=== PATIENT | male | born 1965 | race Caucasian/White ===

== ENCOUNTER → 2017-06-23 | Outpatient (CLI) | payer BC ==
[~2017-06-23] MED LIST: ASPI81TA28 PO; DOXY50CA PO; GLUC15002 PO; MULT-351 PO; VALA1TAB31 PO; [UNRECOGNIZED DRUG - CODE] SQ
--- NOTE | 2017-06-23 15:08 | DIAGNOSTIC IMAGING REPORT ---
ABD/PELVIS IV AND ORAL CONT CLINICAL HISTORY: 52 years-old Male presenting with COLON MASS at the rectosigmoid on colonoscopy. TECHNIQUE: Multidetector CT of the abdomen and pelvis was performed after the administration of oral and intravenous contrast. IV contrast: 93 mL of Optiray 320. A dose lowering technique was used consistent with the principles of ALARA (as low as reasonably achievable). COMPARISON: None. CT DOSE (mGy.cm): The estimated cumulative dose is 684.54 mGycm. FINDINGS: Product Examiner topogram: Gaseous distention of colon. Lung bases: Minimal dependent changes likely atelectasis. Normal heart size. No pericardial or pleural effusion. Liver: Normal morphology. Multiple tiny hypodensities throughout the liver suggestive of hamartomas or hepatic cysts. Additionally an ill-defined indeterminate lesion measuring 11 mm is noted at the inferior right hepatic lobe (see series 3 image 188) no additional suspicious lesion is evident. Patent hepatic vasculature. Biliary: No intrahepatic or extrahepatic biliary ductal dilatation. Normal gallbladder. Pancreas: Normal. Spleen: Normal. Spinal noted. Adrenal glands: Normal. Kidneys and ureters: Subcentimeter hypodensity in the left kidney most likely simple cyst. No hydronephrosis. No nephrolithiasis. Bladder: Normal. Pelvic organs: Prostate and seminal vesicles normal. Postsurgical changes of vasectomy. Bowel: Linear hyperdensity in the mid to lower rectum may suggest a endoscopic clip. Circumferential wall thickening of the distal sigmoid and proximal rectum measuring approximately 5 cm in length. The distal most extent is approximately 13 cm from the anal verge. This spans the peritoneal reflection. Several adjacent suspicious subcentimeter lymph nodes noted. Prominent regional vasculature though no clear intravascular invasion is demonstrated within limitations of CT. Numerous additional endoscopic clips noted in the sigmoid colon. Mild gaseous distention secondary to recent colonoscopy. Oral contrast has transited to the transverse colon. The appendix is normal. No bowel obstruction. Peritoneal cavity: No free fluid or intraperitoneal gas. Lymph nodes: Numerous prominent and suspicious lymph nodes adjacent to the colonic wall thickening in the superior pelvis. No other sites of lymphadenopathy. Vasculature: The IVC is dilated suggesting hypovolemia. Aorta patent. Abdominal wall: Normal. Musculoskeletal: Normal. IMPRESSION: 1. Circumferential wall thickening of the distal sigmoid and proximal rectum measuring 5 cm in length and spanning the peritoneal reflection. This is highly suspicious for a primary colonic neoplasm. Numerous prominent local regional enlarged lymph nodes concerning for spread of disease. No other sites of lymphadenopathy. 2. Indeterminate 11 mm lesion in the inferior right hepatic lobe, which is suspicious for a site of metastatic disease. This is likely amenable to ultrasound-guided targeted liver biopsy. Electronically signed by: Marquis Garay M.D. 06/23/2017 3:07 PM Dictated Date/Time: 06/23/2017 2:59 PM
== END | disposition home or self-care (01) ==
LOC: C.CTS 13:10
PROVIDERS: ATTEND Internal Medicine Gastroenterology
DX: K63.89 Other specified diseases of intestine (principal); K76.9 Liver disease, unspecified

== ENCOUNTER 2017-06-30 08:49 | Day surgery (SDC) | payer BC ==
[2017-06-30] VITALS (7 sets, daily range): BP systolic 110–127; BP diastolic 63–78; PULSE 51–63; TEMP 36.3–37; O2SAT 98–99; Ht 188 cm; Wt 93.0 kg
[~2017-06-30] VITALS: Ht 188 cm; Wt 93.0 kg
[~2017-06-30 08:49] MED LIST changes: -GADOXETATE DISODIUM (NON-WT BASED PROCEDURE) IV PRN; -HYDR-5688 PO; -RIVA1TAB4 PO
[2017-06-30 09:36] LABS: PLATELET COUNT 168 K/uL (130-400)
[2017-06-30] MEDS ORDERED: RIVA1TAB4 PO (09:36)
[2017-06-30 09:38] LABS: PROTHROMBIN TIME (PATIENT) 10.8 SECONDS (9.0-12.0)
--- NOTE | 2017-06-30 13:31 | Discharge Instructions ---
Discharge Instructions Procedure Procedure Date: Jun 30, 2017. Reason for visit: Colon Ca, Abnormal Imagin Of Liver. Discharge Discharge Date: Jun 30, 2017. Discharge Diagnosis: same Instructions Activity Recommendations: No limitations Return to School/Work: no limitations Recommended Home Diet: Resume Previous Diet Provider Instructions: ACTIVITY RECOMMENDATIONS: * Rest today. * Resume regular activity in one day. MEDICATIONS: * May take Tylenol or Ibuprofen as needed for pain. DIET: * Resume previous diet. SPECIAL CARE INSTRUCTIONS: Call your doctor if: * Temperature above 101 degrees F. * Pain not relieved by pain medicine ordered. * Increased drainage or redness from incision. * Notify your doctor with any questions or concerns. Call your doctor or go to the nearest Emergency Department if you experience: * Increased chest pain or shortness of breath. FOLLOW UP VISIT: Follow-up with Referring Physician as scheduled. Allergies Coded Allergies: No Known Allergies (Unverified , 06/30/17) Frederic Yarbrough Recommendations: Call your doctor if: * Temperature above 101 degrees * Pain not relieved by pain medicine ordered * There is increased drainage or redness from any incision * You have any unanswered questions or concerns. Your Doctors Instructions noted above were prepared by provider Mustapha Sears. Patient Signature Section: Patient Instructions Signature Page Hernandez Wilson Patient (or Guardian) Signature/Date: I have read and understand the instructions given to me by my caregivers. Caregiver/RN/Doctor Signature/Date: The above-named patient and/or guardian has received patient instructions on this date. + Original Patient Signature Page (only) stays with chart. Please make copy for patient.
--- NOTE | 2017-06-30 13:43 | DIAGNOSTIC IMAGING REPORT ---
ULTRASOUND GUIDED FINE-NEEDLE ASPIRATION OF A RIGHT HEPATIC LOBE LESION HISTORY: Colorectal cancer. Hepatic lesion. PROCEDURE: Written informed consent was obtained. Preliminary imaging of the right hepatic lobe was performed to determine a safe needle injury site. 1% lidocaine was used for local anesthesia. A skin neck was made. A total of 2 passes using 22-gauge x 9 cm Raheem needle was made through the right hepatic lobe lesion under ultrasound guidance. The specimens were given to the on-site pathologist who determined adequate tissue for diagnosis. The patient tolerated the procedure well. No immediate complications. IMPRESSION: Status post ultrasound-guided fine aspiration of a right hepatic lobe lesion with specimens sent to pathology. Electronically signed by: Mustapha Sears M.D. 06/30/2017 1:41 PM Dictated Date/Time: 06/30/2017 1:38 PM
== END 2017-06-30 15:37 | disposition home or self-care (01) ==
LOC: C.ACU 08:49
PROVIDERS: ATTEND Internal Medicine Gastroenterology
DX: R93.2 Abnormal findings on diagnostic imaging of liver and biliary tract (principal); C18.9 Malignant neoplasm of colon, unspecified; C78.7 Secondary malignant neoplasm of liver and intrahepatic bile duct

== ENCOUNTER → 2017-06-30 | Outpatient (CLI) | payer BC ==
[~2017-06-30] MED LIST changes: +GADOXETATE DISODIUM (NON-WT BASED PROCEDURE) IV PRN; +HYDR-5688 PO; +RIVA1TAB4 PO
--- NOTE | 2017-06-30 13:28 | DIAGNOSTIC IMAGING REPORT ---
MRI OF THE ABDOMEN COMBO CLINICAL HISTORY: Colon cancer. Indeterminate liver lesion. COMPARISON STUDY: Abdominal CT dated 06/23/2017. TECHNIQUE: MRI of the abdomen is performed transverse T1 and T2-weighted sequences in the axial and coronal planes. Contrast enhanced sequences were acquired following the IV administration of 10 cc view of Eovist subtraction imaging and diffusion-weighted imaging were utilized. MRCP reformats were created and assessed.. FINDINGS: Lower chest: No pleural effusion is identified. The heart is normal in size. Liver: The liver is normal in size, contour, and signal intensity. No intrahepatic biliary ductal dilatation is seen. The hepatic veins and portal veins are patent. There is a 1.9 cm T2 slightly hyperintense, T1 hypointense lesion identified in hepatic segment V. This demonstrates small peripheral foci of nodular enhancement but does not completely fill in on the delayed series. This lesion does not retain Eovist and shows restricted diffusion. No additional concerning hepatic lesions are seen. There are numerous tiny biliary cystadenomas incidentally noted. Gallbladder: The gallbladder is normal in appearance. The common bile duct measures up to 6 mm. The pancreatic duct is normal as visualized. Spleen: Normal in size and signal intensity. Pancreas: Unremarkable. Adrenal glands: Unremarkable. Kidneys: The kidneys are normal in size and without hydronephrosis. The kidneys enhance and excrete symmetrically. A subcentimeter cyst is noted in the left kidney. Abdominal aorta: Normal in course and caliber. Bowel: Visualized portions of the small bowel and colon show no evidence of obstruction. Peritoneum: There is no abdominal ascites. Lymphadenopathy: None. Skeletal structures: Visualized skeletal structures times are normal marrow signal intensity. IMPRESSION: 1. There is a 1.9 cm lesion in the right lobe of the liver as above. This is pathologically indeterminant, and although the enhancement kinetics suggest this may represent a benign hemangioma this is not definitive and a metastatic lesion is not excluded given the history of colon cancer. A 2-3 month follow-up contrast-enhanced CT scan is recommended for reassessment. 2. No additional concerning hepatic lesion is seen. 3. 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 Electronically signed by: Eliecer Ordoñez M.D. 06/30/2017 1:26 PM Dictated Date/Time: 06/30/2017 12:26 PM
== END | disposition home or self-care (01) ==
LOC: C.MRI 11:12
PROVIDERS: ATTEND Colon & Rectal Surgery
DX: C18.9 Malignant neoplasm of colon, unspecified (principal); R93.2 Abnormal findings on diagnostic imaging of liver and biliary tract; K76.9 Liver disease, unspecified

== ENCOUNTER → 2017-07-01 | Outpatient (CLI) | payer BC ==
[~2017-07-01] MED LIST changes: -ASPI81TA28 PO; +CEPH500C PO; -DOXY50CA PO; +GABA-112 PO; +HYDR-5688 PO; -MULT-351 PO; +RIVA1TAB4 PO; +XRL10 PO; -[UNRECOGNIZED DRUG - CODE] SQ
--- NOTE | 2017-07-01 12:03 | DIAGNOSTIC IMAGING REPORT ---
PET/CT HISTORY: COLORECTAL CANCER TECHNIQUE: PET/CT was performed from the base of the skull through the pelvis following the intravenous administration of mCi of F18-FDG. Non-contrast CT imaging was performed over the same range without breath-hold for attenuation correction of PET images and anatomic correlation, but not for primary interpretation as it is not of standard diagnostic quality. CT DOSE: COMPARISON: Abdomen and pelvis CT 06/23/2017. FINDINGS: HEAD AND NECK: There is no FDG-avid disease or significant lymphadenopathy in the imaged portions of the head and the neck. CHEST: There is no FDG-avid disease in the chest. There is no axillary, mediastinal, or hilar lymphadenopathy. There is no pleural or pericardial effusion. There is no air-space disease or suspicious lung nodule. ABDOMEN/PELVIS: 1.5 cm hypodense lesion within segment 6 of the liver is again noted. This demonstrates [id number] FDG uptake with an SUV max of 4. There is also redemonstration of the circumflex frontal thickening within the distal sigmoid colon which measures a total length of approximate 5 cm. This is consistent with patient's colonic mass and demonstrates an SUV max of 10. There are 2 adjacent pericolonic soft tissue nodules consistent with conglomerate lymphadenopathy which measure 2.5 and 2.0 cm in size. These demonstrate an SUV max of 3. These are consistent with sites of metastatic disease MUSCULOSKELETAL: There is no FDG-avid or destructive bone lesion. IMPRESSION: 1. FDG avid distal sigmoid mass with adjacent FDG avid pericolonic lymphadenopathy as described above. 2. A 1.5 cm hypodense lesion within the liver demonstrating mild to moderate FDG uptake. The FDG uptake is nonspecific given the recent biopsy and could be related to postprocedural changes. However, metastatic disease remains the diagnosis of exclusion. Electronically signed by: Mustapha Sears M.D. 07/01/2017 12:02 PM Dictated Date/Time: 07/01/2017 11:49 AM
== END | disposition home or self-care (01) ==
LOC: C.PET 09:04
PROVIDERS: ATTEND Colon & Rectal Surgery
DX: C18.9 Malignant neoplasm of colon, unspecified (principal); K76.9 Liver disease, unspecified; Z98.890 Other specified postprocedural states

== ENCOUNTER → 2017-07-03 | Outpatient (CLI) | payer BC ==
--- NOTE | 2017-07-03 12:34 | DIAGNOSTIC IMAGING REPORT ---
TWO VIEW CHEST CLINICAL HISTORY: Colon cancer. Preoperative examination. FINDINGS: PA and lateral chest radiographs are correlated with PET/CT dated 07/01/2017. The cardiomediastinal silhouette is unremarkable. The lungs and pleural spaces are clear. There is no pneumothorax. The bony thorax appears intact. IMPRESSION: No active disease in the chest. Electronically signed by: Eliecer Ordoñez M.D. 07/03/2017 12:33 PM Dictated Date/Time: 07/03/2017 12:32 PM
== END | disposition home or self-care (01) ==
LOC: C.CPL 11:27
PROVIDERS: ATTEND Surgery
DX: Z01.811 Encounter for preprocedural respiratory examination (principal); C18.9 Malignant neoplasm of colon, unspecified

== ENCOUNTER 2017-07-07 06:44 | Day surgery (SDC) | payer BC, OTHER ==
[2017-07-03 16:08] VITALS: BMI 26.0
[~2017-07-07] VITALS: Ht 188 cm; Wt 93.6 kg
[~2017-07-07 06:44] MED LIST changes: -CEPH500C PO; -GABA-112 PO; -HYDR-5688 PO; +LACTATED RINGER'S 1000ML 1,000 ML IV SCH; -XRL10 PO
[2017-07-07 06:55] VITALS: BP 120/79; PULSE 66; TEMP 36.8; O2SAT 99; Ht 188 cm; Wt 93.6 kg
--- NOTE | 2017-07-07 06:56 | History & Physical Bridge Note ---
H&P Re-Evaluation Bridge Note: I have examined the patient, reviewed the History & Physical and in the interval since the performance of the History & Physical I have noted the following changes of clinical significance: No changes noted to be here later
[2017-07-07] MEDS ORDERED: HYDR-5688 PO (07:44)
--- NOTE | 2017-07-07 07:45 | Discharge Instructions ---
Discharge Instructions Date of Service Jul 07, 2017. Visit Reason for Visit: Colon Cancer Discharge Discharge Diagnosis / Problem: A-port Discharge Goals Goal(s): Therapeutic intervention Activity Recommendations Activity Limitations: as noted below Shower/Bathe: tomorrow Anesthesia . Post Anesthesia Instructions: If you have had General Anesthesia or IV Sedation: * Do not drive today. * Resume driving when surgeon permits. * Do not make important decisions or sign legal documents today. * Call surgeon for: 1. Temperature elevations greater than 101 degrees F. 2. Uncontrollable pain. 3. Excessive bleeding. 4. Persistent nausea and vomiting. 5. Medication intolerance (nausea, vomiting or rash). * For nausea and vomiting use only clear liquids such as: tea, soda, bouillon until nausea subsides, then gradually increase diet as tolerated. * If you have any concerns or questions, call your surgeon's office. If physician is unavailable and it is an emergency, call 911 or go to the nearest emergency room. . Instructions / Follow-Up Instructions / Follow-Up Dr. Westfall in 1-2 weeks as needed, call [phone] for any questions It is OK for port to be used Restart Xarelto on Diet Recommendations Recommended Home Diet: no limitations Pending Studies Studies pending at discharge: no Medical Emergencies . Who to Call and When: Medical Emergencies: If at any time you feel your situation is an emergency, please call 911 immediately. . Non-Emergent Contact Non-Emergency issues call your: Surgeon Call Non-Emergent contact if: you have a fever, temperature is above 101.5, your pain is not controlled, wound has increased redness, wound has increased pain . . "Provider Documentation" section prepared by Jonny Lombardi. .
[2017-07-07] MEDS ORDERED: LIDOCAINE HCL 2% 2 ML VIAL (20MG/ML) ONE (08:00)
[2017-07-07] MEDS ORDERED: ATROPINE SULFATE 0.1 MG/ML 5ML SYR IV PRN (08:00)
[2017-07-07] MEDS ORDERED: FENTANYL CITRATE INJ 50 MCG/1 ML 2 ML VIAL ONE (08:00)
[2017-07-07] MEDS ORDERED: PROPOFOL IV EMULSION 10 MG/ML 20 ML VIAL IV ONE (08:00)
[2017-07-07] MEDS ORDERED: MIDAZOLAM HCL 1 MG/ML 2ML VIAL ONE ×2 (08:00→08:39)
[2017-07-07] MEDS ORDERED: ONDANSETRON INJ 2 MG/ML 2 ML VIAL IV PRN ×2 (08:00→09:30)
[2017-07-07] MEDS ORDERED: FENTANYL CITRATE INJ 50 MCG/1 ML 2 ML VIAL IV PRN (08:00)
[2017-07-07] MEDS ORDERED: EpHEDrine SULFATE INJ 50 MG/ML AMP IV PRN (08:00)
[2017-07-07] MEDS ORDERED: LIDOCAINE HCL 1% 20 ML VIAL ONE (08:28)
[2017-07-07] MEDS ORDERED: BACITRACIN 50000 UNIT VIAL ONE (08:29)
[2017-07-07] MEDS ORDERED: ONDANSETRON INJ 2 MG/ML 2 ML VIAL ONE (09:04)
[2017-07-07] MEDS ORDERED: LACTATED RINGER'S 1000ML 1,000 ML IV SCH (09:19)
[2017-07-07] MEDS ORDERED: MoRPHine SULFATE 2 MG/ML CARP IV PRN (09:30)
[2017-07-07] MEDS ORDERED: HYDROCODONE/ACETAMIN 5/325MG TAB PO PRN (09:30)
--- NOTE | 2017-07-07 09:32 | [facility] Post Operative Brief Note ---
Immediate Operative Summary Operative Date Jul 07, 2017. Pre-Operative Diagnosis Need for IV therapy for chemotherapy Post-Operative Diagnosis Same Procedure(s) Performed Insertion of A-Port left subclavian Surgeon Dr Westfall Video Game Creator Surgeon(s) none Estimated Blood Loss 2ML Findings as preop Specimens none Anesthesia 1%xyl(8cc) and iv sedation Complication(s) None (OR summary dictated co nfirmation number [id number])
[2017-07-07 09:45] VITALS: BP 111/65; PULSE 55; TEMP 36.6; O2SAT 99
--- NOTE | 2017-07-07 09:46 | DIAGNOSTIC IMAGING REPORT ---
CHEST ONE VIEW PORTABLE CLINICAL HISTORY: Port placement. COMPARISON STUDY: PET/CT July 01, 2017 and chest radiograph July 03, 2017. FINDINGS: There has been interval placement of a left subclavian [id number]. Catheter tip projects over the cavoatrial junction. Catheter is intact and there is no pneumothorax. There is no evidence for pulmonary edema. No consolidation to suggest pneumonia is present. Cardiomediastinal silhouette is unremarkable. IMPRESSION: No pneumothorax following placement of a left subclavian [id number]. Electronically signed by: Adam Yuen M.D. 07/07/2017 9:45 AM Dictated Date/Time: 07/07/2017 9:39 AM
[2017-07-07 10:30] VITALS: BP 121/78; PULSE 54; TEMP 36.5; O2SAT 100
--- NOTE | 2017-07-07 10:42 | OPERATIVE REPORT ---
DATE OF OPERATION: 07/07/2017 SURGEON: Jose C Westfall MD. PREOPERATIVE DIAGNOSIS: Metastatic colon cancer. POSTOPERATIVE DIAGNOSIS: Same. 1 PROCEDURE: MRI compatible port through the left subclavian. SUMMARY: The patient was brought into the operating room theater. In supine position, a roll had been placed underneath his shoulders. The left chest and neck was prepped with Betadine scrubbing solution and properly draped. Systemic antibiotic was given. IV sedation was given. At this point, 1% Xylocaine without epinephrine, a total 8 mL first was introduced to anesthetize at the angle of the clavicle sufficient enough that when the patient was placed in the Trendelenburg position, we were able to access the subclavian vein. At this point, we placed the guidewire and fluoroscopically were in the superior vena cava of right atrial. At this point, we then left the wire intact there and created another pocket about an inch or so below this puncture site where an incision was made approximately an inch and a half long with preemptive local analgesia, cut through, went onto the subcutaneous tissue, we basically did note that there was a fat above the superficial body fascia that created a pocket for a reservoir, sufficient enough that could accommodate and easily palpate through the skin. The reservoir was then brought up onto the field and retracted in the pocket that was created and appeared easily palpable. At this point, we then dissected underneath the superior aspect of that incision to the point that we were able to find the guidewire and tunneled it to the open incision from the puncture site. There was very little bleeding and that the patient was on Xarelto and we had stopped about 2 days before. The patient was then placed in the Trendelenburg position. Fluoroscopically, we revisualized the guidewire, it was still in the superior vena cava. We then placed the introducer and a peel away sheath followed by the catheter that we positioned at the level of about 30 cm. We peeled away the sheath to place a 4 x 4 in that area and imaged the system where the catheter appeared to be in the right ventricle, almost inferior vena cava. At this point, we then pulled it back sufficient enough to cut the catheter, placed a black bolster and then inserted on the reservoir, secured it with a black bolster, we aspirated and flushed quite easily. We reimaged the system and appeared to be satisfactory in the right atrial area, almost to the point of the superior vena cava junction. We then incised in the subcutaneous pocket through 3 polar apices with 2-0 nylon. We aspirated freshly percutaneously and there was no difficulty. We then closed the wound in multiple layers using 2-0 and 3-0 Dexon and 4-0 Monocryl subcuticularly. Steri-Strips applied. Prior to closing, we had imaged the system again and the catheter appeared to be in good position. Estimated blood loss approximately 3 mL. The patient tolerated the procedure well and taken to recovery in good condition. I attest to the content of the Intraoperative Record and any orders documented therein. Any exception s are noted below.
--- NOTE | 2017-07-07 11:05 | Anesthesiology Progress Note ---
Anesthesia Post Op Note Date & Time Jul 07, 2017 at 11:05 Vital Signs Pain Intensity: 0 Vital Signs Past 12 Hours Date Time Temp Pulse Resp B/P (MAP) Pulse Ox O2 Delivery O2 Flow Rate FiO2 07/07/17 10:30 36.5 54 16 121/78 100 Room Air 07/07/17 09:45 36.6 55 18 111/65 99 Room Air 07/07/17 09:40 36.4 51 14 109/68 98 Room Air 07/07/17 09:30 52 16 107/67 97 Room Air 07/07/17 09:20 36.8 52 16 104/70 99 Oxymask 10 07/07/17 06:55 36.8 66 18 120/79 (93) 99 Room Air Notes Mental Status: alert / awake / arousable, participated in evaluation Pt Amnestic to Procedure: Yes Nausea / Vomiting: adequately controlled Pain: adequately controlled Airway Patency, RR, SpO2: stable & adequate BP & HR: stable & adequate Hydration State: stable & adequate Anesthetic Complications: no major complications apparent
--- NOTE | 2017-07-08 08:06 | OPERATIVE REPORT ---
DATE OF OPERATION: 07/07/2017 PREOPERATIVE DIAGNOSIS: Metastatic colon cancer. POSTOPERATIVE DIAGNOSIS: Same. PROCEDURE: MRI compatible port in the left subclavian using fluoroscopy. SUMMARY: We utilized the fluoroscopic unit to position the MRI compatible port through the left subclavian on this gentleman. I attest to the content of the Intraoperative Record and any orders documented therein. Any exception s are noted below.
[2017-12-23] MEDS ORDERED: GABA-112 PO (10:23)
[2017-12-23] MEDS ORDERED: XRL10 PO (10:23)
[2018-01-22] MEDS ORDERED: CEPH500C PO (11:27)
== END 2017-07-07 10:45 | disposition home or self-care (01) ==
LOC: C.ACU 06:44
PROVIDERS: ATTEND Surgery
DX: C18.9 Malignant neoplasm of colon, unspecified (principal); C78.7 Secondary malignant neoplasm of liver and intrahepatic bile duct; Z86.718 Personal history of other venous thrombosis and embolism; Z79.82 Long term (current) use of aspirin; Z98.52 Vasectomy status; Z86.711 Personal history of pulmonary embolism; Z79.01 Long term (current) use of anticoagulants

== ENCOUNTER 2019-08-18 02:41 | Inpatient (IN) ==
[2019-08-18] MEDS ORDERED: ONDANSETRON INJ 2 MG/ML 2 ML VIAL IV STA ×2 (03:14→08:03)
[2019-08-18] MEDS ORDERED: SODIUM CHLORIDE 0.9% 1000ML 1,000 ML IV SCH (03:15)
[2019-08-18] MEDS: fentaNYL citrate 100 MCG/2 ML VIAL IV PRN ×4 (03:32→07:58)
[2019-08-18 03:46] LABS: Basophils # (auto) 0.01 K/uL (0-0.2); Basophils % (auto) 0.1 %; Immature Granulocytes # (auto) 0.02 K/uL (0.00-0.02); Immature Granulocytes % (auto) 0.2 %; Lymphocytes % (auto) 3.2 %; Mean Corpuscular Hemoglobin 26.9 pg (25-34); Mean Corpuscular Hgb Conc 34.2 g/dL (32-36); Mean Corpuscular Volume 78.7 fL (80-100); Mean Platelet Volume 9.9 fL (7.4-10.4); Monocytes # (auto) 0.62 K/uL (0.11-0.59); Neutrophils # (auto) 11.37 K/uL (1.4-6.5); Neutrophils % (auto) 91.5 %; Platelet Count 175 K/uL (130-400); RDW Standard Deviation 40.3 fL (36.4-46.3); Red Blood Count 4.83 M/uL (4.7-6.1); White Blood Count 12.42 K/uL (4.8-10.8)
[2019-08-18 03:52] LABS: Appearance Urine Turbid (Clear); Bilirubin Urine Negative (Negative); Blood Urine Negative (Negative); Color Urine Red; Glucose Urine UA Negative (Negative); Ketones Urine Trace (Negative); Leukocyte Esterase Urine Negative (Negative); Nitrite Urine Negative (Negative); Protein Urine Trace (Negative); Specific Gravity Urine >= 1.030 (1.000-1.030); Urobilinogen Urine Negative (Negative); pH Urine 5.5 (4.5-7.5)
[2019-08-18] MEDS ORDERED: HYDROmorphone INJ 1 MG/ML SYRINGE IV STA (03:57)
[2019-08-18 04:01] LABS: INR 1.2 (0.9-1.1); Partial Thromboplastin Ratio 0.8; Partial Thromboplastin Time 22.5 Seconds (21.0-31.0); Prothrombin Time 11.7 Seconds (9.0-12.0)
--- NOTE | 2019-08-18 04:02 | Emergency Department Note ---
History of Present Illness General Chief complaint: Abdominal Pain Stated complaint: ABD PAIN,BACK PAIN,NAUSEA,VOMITING History of Present Illness Maximum Pain Intensity: 8 This 54-year-old presents to the ER complaining of nausea vomiting severe epigastric pain that radiates to his back who had an ERCP stent placed today at [facility] Location: Abdomen Quality: Severe Severity: Severe Duration: Tonight Timing: Started after he ate [employer] and a sleeve of chocolate chip cookies Context: Patient was concerned and came in Modifying factors: better with nothing; worse with activity Patient called his GI doctor at [facility] and was advised to go the ER. He has been off his Xarelto for the procedure. He has a history of colon cancer with mets to the liver. He has had 2 liver resections and a colon resection. He states he currently does not have active cancer. He is not on chemo or radiation. He has a drain placed for fluid in his right upper quadrant. No inc rease in the drainage. Patient denies fevers, cough, diarrhea, leg pain or swelling. Home Medications Home Medications Medication Instructions Recorded Confirmed Type rivaroxaban [Xarelto] 10 mg DAILY 08/18/19 08/18/19 History Allergies Allergy/AdvReac Type Severity Reaction Status Date / Time No Known Allergies Allergy Verified 08/18/19 03:58 Past Med/Surg History Medical History (Updated 08/18/19 @ 08:53 by Lauar Thurston MD) Colon cancer DVT (deep venous thrombosis) (Acute 12/29/13) PE (pulmonary embolism) (Acute) Superficial thrombophlebitis of left leg (Resolved) Surgical History H/O arthroscopic knee surgery (Resolved) Family History (Updated 08/18/19 @ 13:03 by Laura Thurston MD) Father Coronary heart disease Social History Preferred Language: Kyrgyz Communication Ability: Effective Changer Fixer Required: No Beliefs That Will Affect Care: None Current Living Situation: Spouse Other Information That Helps Us Care for You: No Feels Safe at Home: Yes Safety Concerns: Feels Safe At This Time Smoking Status: Never smoker Do You Dip or Chew Tobacco: No ; Second Hand Exposure: No ; Tobacco Cessation Education Requested by Patient: No Hx Alcohol Use: No Hx Substance Use: No Review of Systems A total of 10 systems reviewed and were otherwise negative Physical Exam Vital Signs Vital Signs - 24 hr 08/18/19 04:31 08/18/19 05:00 08/18/19 06:00 Pulse Rate 66 61 82 Pulse Rate from SpO2 Sensor 64 61 77 Respiratory Rate 18 23 25 H Blood Pressure 132/77 137/72 122/69 Blood Pressure Mean 103 95 91 Pulse Oximetry 97 98 98 Oxygen Delivery Method Room Air Room Air Room Air 08/18/19 07:00 08/18/19 08:00 Pulse Rate 81 74 Pulse Rate from SpO2 Sensor 82 75 Respiratory Rate 23 20 Blood Pressure 134/80 134/73 Blood Pressure Mean 96 86 Pulse Oximetry 97 96 Oxygen Delivery Method Room Air Room Air VITALS: Vitals are noted on the nurse's note and reviewed by myself. Vital signs stable. GENERAL: Pleasant male who appears in pain, in moderate acute distress, nondiaphoretic, well-developed well-nourished. SKIN: Capillary reflex less than 2 seconds. HEENT: Normocephalic. PERRLA. EOMI. Nares patent. Mucous membranes moist. Neck is supple without nuchal rigidity. HEART: Regular rate and rhythm LUNGS: Clear to auscultation bilaterally without wheezes, rales or rhonchi. No retractions or accessory muscle use. ABDOMEN: Positive bowel sounds x 4. Normal tympanic percussion. Soft, diffusely tender to palpation with increased pain in the epigastric region, without masses or organomegaly. Tucker sign negative. No guarding or rebound tenderness. No CVA tenderness MUSCULOSKELETAL: No gross musculoskeletal defects. NEURO: Patient was alert and oriented to person place and time. No focal neurological deficits. Course Administered Medications Hydromorphone HCl (Dilaudid) 0.5 mg IV Q2H PRN PRN Reason: Pain Stop: 09/01/19 09:51 Last Admin: 08/19/19 03:30 Dose: 0.5 mg Documented by: [id number] Admin: 08/18/19 23:48 Dose: 0.5 mg Documented by: [id number] Admin: 08/18/19 21:07 Dose: 0.5 mg Documented by: [id number] Admin: 08/18/19 18:09 Dose: 0.5 mg Documented by: [id number] Admin: 08/18/19 14:59 Dose: 0.5 mg Documented by: [id number] Admin: 08/18/19 11:56 Dose: 0.5 mg Documented by: [id number] Lactated Ringer's (Lr) 1,000 mls @ 100 mls/hr IV .Q10H MIESHA Stop: 09/17/19 07:44 Last Admin: 08/18/19 19:35 Dose: 100 mls/hr Documented by: [id number] Infusion: 08/18/19 17:57 Dose: 100 mls/hr Documented by: [id number] Admin: 08/18/19 07:57 Dose: 100 mls/hr Documented by: [id number] Famotidine 20 mg/ Syringe 5 mls @ 2.5 mls/min IV BID MIESHA Stop: 09/17/19 10:29 Last Admin: 08/18/19 21:08 Dose: 2.5 mls/min Documented by: [id number] Admin: 08/18/19 10:29 Dose: 2.5 mls/min Documented by: [id number] Piperacillin Sod/Tazobactam (Sod 3.375 gm/ Dextrose) 115 mls @ 28.75 mls/hr IV Q8H MIESHA; Protocol Stop: 08/28/19 11:59 Last Infusion: 08/18/19 23:48 Dose: 0 mls/hr Documented by: [id number] Admin: 08/18/19 19:38 Dose: 28.8 mls/hr Documented by: [id number] Infusion: 08/18/19 16:00 Dose: 0 mls/hr Documented by: [id number] Admin: 08/18/19 11:56 Dose: 28.8 mls/hr Documented by: [id number] Ondansetron HCl (Zofran) 4 mg IV Q6H PRN PRN Reason: Nausea Stop: 09/17/19 09:51 Last Admin: 08/18/19 18:14 Dose: 4 mg Documented by: [id number] Admin: 08/18/19 11:56 Dose: 4 mg Documented by: [id number] Rivaroxaban (Xarelto) 10 mg PO DAILY [facility] Stop: 09/17/19 08:59 Last Admin: 08/18/19 10:29 Dose: 10 mg Documented by: [id number] Discontinued Medications Fentanyl Citrate (Fentanyl Citrate) 100 mcg IV Q1H PRN PRN Reason: Pain Stop: 09/01/19 03:13 Last Admin: 08/18/19 07:58 Dose: 100 mcg Documented by: [id number] Admin: 08/18/19 06:41 Dose: 100 mcg Documented by: [id number] Admin: 08/18/19 05:24 Dose: 100 mcg Documented by: [id number] Admin: 08/18/19 03:32 Dose: 100 mcg Documented by: [id number] Hydromorphone HCl (Dilaudid) 1 mg IV NOW STA Stop: 08/18/19 03:58 Last Admin: 08/18/19 04:05 Dose: 1 mg Documented by: [id number] Sodium Chloride (Nss 1000ml) 1,000 mls @ 999 mls/hr IV .Q1H1M [facility] Stop: 08/18/19 04:15 Last Infusion: 08/18/19 04:33 Dose: 0 mls/hr Documented by: [id number] Admin: 08/18/19 03:32 Dose: 999 mls/hr Documented by: [id number] Piperacillin Sod/Tazobactam Sod (Zosyn) 4.5 gm in 120 mls @ 240 mls/hr IV NOW ONE Stop: 08/18/19 05:20 Last Infusion: 08/18/19 05:52 Dose: 0 mls/hr Documented by: [id number] Admin: 08/18/19 05:21 Dose: 240 mls/hr Documented by: [id number] Lactated Ringer's (Lr) 1,000 mls @ 250 mls/hr IV .Q4H [facility] Stop: 09/17/19 06:29 Last Infusion: 08/18/19 10:14 Dose: 0 mls/hr Documented by: [id number] Infusion: 08/18/19 07:57 Dose: 0 mls/hr Documented by: [id number] Admin: 08/18/19 06:41 Dose: 250 mls/hr Documented by: [id number] Ioversol (Optiray 320 100ml) 100 ml IV ONCE PRN PRN Reason: Interaction Checking Stop: 08/22/19 04:30 Last Admin: 08/18/19 04:31 Dose: 93 ml Documented by: [id number] Ondansetron HCl (Zofran) 4 mg IV NOW STA Stop: 08/18/19 03:15 Last Admin: 08/18/19 03:32 Dose: 4 mg Documented by: [id number] Ondansetron HCl (Zofran) 4 mg IV NOW STA Stop: 08/18/19 08:04 Last Admin: 08/18/19 08:25 Dose: Not Given Documented by: [id number] Ondansetron HCl (Zofran) Confirm Administered Dose 4 mg .ROUTE .STK-MED ONE Stop: 08/18/19 08:07 Last Admin: 08/18/19 08:12 Dose: 4 mg Documented by: [id number] Medical Decision Making Medical Records Attestation: I reviewed the patient's medical records. Home Medications Current Medication List: was personally reviewed by me Laboratory Data Attestation: I reviewed the patient's lab results. Result diagrams: 08/18/19 03:32 08/18/19 03:32 Lab Results 08/18/19 08/18/19 08/18/19 Range/Units 03:32 03:32 03:32 WBC 12.42 H (4.8-10.8) K/uL RBC 4.83 (4.7-6.1) M/uL Hgb 13.0 L (14.0-18.0) g/dL Hct 38.0 L (42-52) % MCV 78.7 L (80-100) fL MCH 26.9 (25-34) pg MCHC 34.2 (32-36) g/dL RDW Std Deviation 40.3 (36.4-46.3) fL RDW Coeff of Cat 14.0 (11.5-14.5) % Plt Count 175 (130-400) K/uL MPV 9.9 (7.4-10.4) fL Immature Gran % (Auto) 0.2 % Neut % (Auto) 91.5 % Lymph % (Auto) 3.2 % Lawrence % (Auto) 5.0 % Eos % (Auto) 0.0 % Baso % (Auto) 0.1 % Immature Gran # (Auto) 0.02 (0.00-0.02) K/uL Neut # (Auto) 11.37 H (1.4-6.5) K/uL Lymph # (Auto) 0.40 L (1.2-3.4) K/uL Lawrence # (Auto) 0.62 H (0.11-0.59) K/uL Eos # (Auto) 0.00 (0-0.5) K/uL Baso # (Auto) 0.01 (0-0.2) K/uL PT (9.0-12.0) Seconds INR (0.9-1.1) APTT (21.0-31.0) Seconds PTT Ratio Sodium 136 (136-145) mmol/L Potassium 3.9 (3.5-5.1) mmol/L Chloride 101 (98-107) mmol/L Carbon Dioxide 27 (21-32) mmol/L Anion Gap 8.0 (3-11) BUN 16 (7-18) mg/dl Creatinine 0.83 (0.6-1.4) mg/dl Est Cr Clr Drug Dosing 119.7 ml/min Est GFR ( Amer) 116.4 Est GFR (Non-Af Amer) 100.5 BUN/Creatinine Ratio 19.5 (10-20) Glucose 162 H (70-99) mg/dl Lactate 2.0 (0.4-2.0) mmol/L Calcium 9.1 (8.5-10.1) mg/dl Total Bilirubin 1.5 H (0.2-1) mg/dl AST 34 (15-37) U/L ALT 28 (12-78) U/L Alkaline Phosphatase 124 H (45-117) U/L Troponin I < 0.015 (0-0.045) ng/ml Total Protein 7.7 (6.4-8.2) gm/dl Albumin 3.5 (3.4-5.0) gm/dl Globulin 4.2 H (2.5-4.0) gm/dl Albumin/Globulin Ratio 0.8 L (0.9-2) Lipase 23443 H (73-393) U/L Urine Color Urine Appearance (Clear) Urine pH (4.5-7.5) Ur Specific Grace (1.000-1.030) Urine Protein (Negative) Urine Glucose (UA) (Negative) Urine Ketones (Negative) Urine Blood (Negative) Urine Nitrite (Negative) Urine Bilirubin (Negative) Urine Urobilinogen (Negative) Ur Leukocyte Esterase (Negative) Urine RBC (0-4) /hpf Urine WBC (0-5) /hpf Ur Epithelial Cells (0-5) /lpf Urine Bacteria (Negative) Granular Casts (0) /lpf 02/13/20 02/13/20 Range/Units 03:32 03:32 WBC (4.8-10.8) K/uL RBC (4.7-6.1) M/uL Hgb (14.0-18.0) g/dL Hct (42-52) % MCV (80-100) fL MCH (25-34) pg MCHC (32-36) g/dL RDW Std Deviation (36.4-46.3) fL RDW Coeff of Cat (11.5-14.5) % Plt Count (130-400) K/uL MPV (7.4-10.4) fL Immature Gran % (Auto) % Neut % (Auto) % Lymph % (Auto) % Lawrence % (Auto) % Eos % (Auto) % Baso % (Auto) % Immature Gran # (Auto) (0.00-0.02) K/uL Neut # (Auto) (1.4-6.5) K/uL Lymph # (Auto) (1.2-3.4) K/uL Lawrence # (Auto) (0.11-0.59) K/uL Eos # (Auto) (0-0.5) K/uL Baso # (Auto) (0-0.2) K/uL PT 11.7 (9.0-12.0) Seconds INR 1.2 H (0.9-1.1) APTT 22.5 (21.0-31.0) Seconds PTT Ratio 0.8 Sodium (136-145) mmol/L Potassium (3.5-5.1) mmol/L Chloride (98-107) mmol/L Carbon Dioxide (21-32) mmol/L Anion Gap (3-11) BUN (7-18) mg/dl Creatinine (0.6-1.4) mg/dl Est Cr Clr Drug Dosing ml/min Est GFR ( Amer) Est GFR (Non-Af Amer) BUN/Creatinine Ratio (10-20) Glucose (70-99) mg/dl Lactate (0.4-2.0) mmol/L Calcium (8.5-10.1) mg/dl Total Bilirubin (0.2-1) mg/dl AST (15-37) U/L ALT (12-78) U/L Alkaline Phosphatase (45-117) U/L Troponin I (0-0.045) ng/ml Total Protein (6.4-8.2) gm/dl Albumin (3.4-5.0) gm/dl Globulin (2.5-4.0) gm/dl Albumin/Globulin Ratio (0.9-2) Lipase (73-393) U/L Urine Color Red Urine Appearance Turbid A (Clear) Urine pH 5.5 (4.5-7.5) Ur Specific Grace >= 1.030 (1.000-1.030) Urine Protein Trace H (Negative) Urine Glucose (UA) Negative (Negative) Urine Ketones Trace H (Negative) Urine Blood Negative (Negative) Urine Nitrite Negative (Negative) Urine Bilirubin Negative (Negative) Urine Urobilinogen Negative (Negative) Ur Leukocyte Esterase Negative (Negative) Urine RBC 5-10 H (0-4) /hpf Urine WBC >30 H (0-5) /hpf Ur Epithelial Cells 10-20 H (0-5) /lpf Urine Bacteria 4+ H (Negative) Granular Casts 1-5 H (0) /lpf Imaging Data Attestation: I personally reviewed and interpreted this imaging study as follows: MDM Narrative Prior records/ancillary studies reviewed. Triage Nursing notes reviewed. Additional history obtained from family. The patient's history was concerning for abdominal pain. Differential diagnosis: Etiologies such as appendicitis, diverticulitis, PUD, biliary pathology, UTI, pancreatitis, obstruction, mesenteric ischemia, aortic pathology, infections, inflammatory bowel disease, renal colic, as well as others were entertained. Physical examination findings: As above. ER treatment provided: An order was placed for continuous cardiac monitoring. The monitor shows a rate of 60-100 with a normal sinus rhythm. Fentanyl, Zofran, IV fluids, Dilaudid On reassessment the patient felt better. Diagnostics interpreted by me: ECG: Ordered for epigastric pain EKG: Normal sinus, incomplete right bundle branch block, no acute ST-T wave changes, rate of 60. Impression incomplete right bundle branch block interpreted by myself I think arrhythmia is unlikely. EKG shows normal sinus rhythm with no interval abnormalities such as QT prolongation or WPW. There are no findings to suggest Brugada syndrome. Cardiac monitoring in the emergency department reveals no tachycardic or bradycardic dysrhythmia. Hypertrophic cardiomyopathy was considered but there are no clear historical elements pointing toward this. EKG is not suggestive. The QRS voltage is not extremely large and there are no sug gestive Q waves. The labs revealed leukocytosis Elevated lipase, urine concerning for infection and sent for culture Imaging studies: CT ABDOMEN & PELVIS With Contrast: Status post right hepatectomy, placement of a right upper abdominal drain near the resection margin, and CBD stent placement. Small amount of fluid at the resection margin could represent postoperative seroma or biloma. Small amount of free fluid in the abdomen and pelvis. No abscess. Heterogeneous enhancement of the pancreas with surrounding fluid likely represents pancreatitis. No pseudocyst or abscess. Status post distal colon resection. No bowel wall thickening or obstruction. Normal appendix. Linear opacity in the left lower lobe probably represents atelectasis. Radiologist: Chuck Rosas MD Consultation: A consultation was placed with the GI specialist at [facility], with no answer. The patient is requesting to stay here. I did danisha JOYCE herer and spoke to Dr. Garcia and states that there is just simply post procedure pancreatitis this can be managed here but if there is anything else the patient will be need to be transferred to tertiary facility. He recommends hydration of LR 250cc an hour with a urine output of point 0.5 mL/kg/h. I spoke to medicine, Dr. Caballero and will evaluate the patient. I informed that the patient is requesting to stay at this facility. I did speak to GI. The case was discussed and diagnostics were reviewed. The patient was evaluated in the ER for further treatment. Exam and history seem consistent with pancreatitis with UTI who just had a ERCP stent placed at [facility] yesterday afternoon. Patient was started on antibiotics. Patient is requesting to stay in this facility. I did danisha [facility] several times with no response. I spoke to GI here and states that they can evaluate the patient on consult. Medicine was consulted and will evaluate the patient. By the evaluation outlined above emergent etiologies such as appendicitis, diverticulitis, PUD, obstruction, mesenteric ischemia, aortic pathology, inflammatory bowel disease, renal colic, as well as others were deemed relatively unlikely. The pt informed about the findings as listed above. All questions were answered and pleased with the treatment. Case reviewed with my attending The chart was completed utilizing [employer] voice recognition software. Grammatical errors, random word insertions, pronoun errors, and incomplete sentences are an occassional consequence of this system due to software limitations, ambient noise, and hardware issues. Any formal questions or concerns about the content, text, or information contained within the body of this dictation should be directly addressed to the physician senior executive assistant for clarification. Impression & Plan Pancreatitis, Acute UTI Discharge Plan Visit Data *Final* Discharge Date/Time: 08/18/19 09:22 Chief Complaint: Abdominal Pain Stated Complaint: ABD PAIN,BACK PAIN,NAUSEA,VOMITING ED Provider: Ammy Mcgraw ED Midlevel Provider: Constance Curry Discharge Problem: Pancreatitis, Acute UTI Patient Disposition: Admitted As Inpatient Condition: Fair Discharge Instructions Interventions: ED Discharge Assessment Last Done: 08/18/19 09:22 Discharge Problem: Pancreatitis Qualifiers: Chronicity: acute Pancreatitis type: unspecified pancreatitis type Acute pancreatitis complication: unspecified Qualified Code(s): K85.90 - Acute pancreatitis without necrosis or infection, unspecified
[2019-08-18 04:04] LABS: Alanine Aminotransferase 28 U/L (12-78); Albumin Level 3.5 gm/dl (3.4-5.0); Aspartate Aminotransferase 34 U/L (15-37); BUN Creatinine Ratio 19.5 (10-20); Blood Urea Nitrogen 16 mg/dl (7-18); Calcium 9.1 mg/dl (8.5-10.1); Carbon Dioxide 27 mmol/L (21-32); Chloride 101 mmol/L (98-107); Creatinine Clr Calc Pharmacy 119.7 ml/min; Est GFR (African American) 116.4; Est GFR (Non-African American) 100.5; Glucose 162 mg/dl (70-99); Potassium 3.9 mmol/L (3.5-5.1); Sodium 136 mmol/L (136-145)
[2019-08-18 04:09] LABS: Albumin Globulin Ratio 0.8 (0.9-2); Alkaline Phosphatase 124 U/L (45-117); Bilirubin,Total 1.5 mg/dl (0.2-1); Globulin 4.2 gm/dl (2.5-4.0); Lipase 13210 U/L (73-393); Total Protein 7.7 gm/dl (6.4-8.2); Troponin I < 0.015 ng/ml (0-0.045)
[2019-08-18 04:19] LABS: Bacteria Urine 4+ (Negative); WBC Urine >30 /hpf (0-5)
[2019-08-18] MEDS ORDERED: IOVERSOL 100ml IV PRN (04:31)
[2019-08-18] MEDS ORDERED: PIPERACILLIN/TAZOBACTAM 4.5 GM/120 ML BAG IV ONE (04:51)
[2019-08-18] MEDS ORDERED: PIPERACILL/TAZOBAC CONSULT ACTIVE PRN (04:51)
[2019-08-18] MEDS ORDERED: LACTATED RINGER'S 1,000 ML IV SCH (06:30)
--- NOTE | 2019-08-18 07:54 | Emergency Department Note ---
ED Visit Note This patient's case was signed out to me by Chantelle Garzon PA-C at the end her shift. We were awaiting admission by the hospitalist for pancreatitis. The patient had a recent ERCP at [facility] and therefore Chantelle had attempted to get in touch with surgery. Before being admitted the surgeon called from [facility] and the case was discussed with him. He recommended that the patient have lactated Ringer's 100 mL's per hour. The order was changed as requested. The patient was admitted by the hospitalist. . : Pancreatitis Qualifiers: Chronicity: acute Pancreatitis type: unspecified pancreatitis type Acute pancreatitis complication: unspecified Qualified Code(s): K85.90 - Acute pancreatitis without necrosis or infection, unspecified
[2019-08-18] MEDS: LACTATED RINGER'S 1,000 ML IV SCH ×2 (07:57→19:35)
--- NOTE | 2019-08-18 07:57 | CT Scan Report ---
ABDOMEN AND PELVIS CT WITH IV CONTRAST CT DOSE: 472.08 mGy.cm HISTORY: Acute generalized abdominal pain status post ERCP history of colon cancer with metastatic di sease. Prior sigmoidectomy with colocolonic anastomosis. severe mid abd pain, ERCP stent placed today . TECHNIQUE: Multiaxial CT images of the abdomen and pelvis were performed following the IV administrat ion of 93 cc of Optiray 320, A dose lowering technique was utilized adhering to the principles of AL TALA. COMPARISON STUDY: CT abdomen from outside institution 08/04/2019, CT abdomen and pelvis 04/20/2019 FINDINGS: Mild bibasilar atelectasis, left greater than right. Trace right pleural effusion. No large volume pn eumatosis or pneumoperitoneum. Trace air is noted adjacent to the right partial hepatectomy site hilario cent to surgical suture material and drainage catheter. Mildly complex free fluid adjacent to the ely gical catheter has decreased from the 08/04/2019 exam. There is trace abdominal pelvic ascites with fl uid appearing simple. Splenomegaly, 15.2 cm. Heterogeneous appearance of the posterior right hepatic lobe adjacent to the resection margin. No new hepatic mass lesions identified. Hepatic and portal vei ns appear unremarkable. Mild bilateral adrenal gland thickening. Gallbladder appears surgically absen t. A common bile duct stent has been placed with distal tip terminating in the duodenum. No significa nt biliary ductal dilation identified. Interstitial and peripancreatic edema with surrounding peripan creatic free fluid suggest acute pancreatitis. There is homogeneous enhancement of the pancreas witho ut evidence of necrosis or acute peripancreatic fluid collection. No pancreatic ductal dilation, obst ruction lesion or mass identified. Kidneys are unremarkable. 6 mm hypodensity of the interpolar left kidney is too small to characterize however suggests probable cyst. Partial distention of the bladder with wall thickening. Prostamegaly . Multiple phleboliths of the pelvis. Aorta and IVC are unremarkable. There is no new adenopathy. Fluid within the distal esophagus. Fluid-filled stomach. Scattered small bowel air-fluid levels witho ut transition point identified to suggest obstruction. A few stool-filled loops of small bowel are al so noted within the lower abdomen and pelvis. Prior sigmoidectomy with colocolonic anastomosis. Mild wall thickening of the transverse colon is likely secondary to partial distention. Mild fecal retenti on. Retained enteric contrast is noted within a loop of distal ileum. Visualized appendix appears non inflamed. The mild generalized body wall edema. Bones appear grossly intact. IMPRESSION: 1. Findings compatible with moderate acute pancreatitis. No evidence of pancreatic necrosis or acute peripancreatic fluid collection. 2. Multiple small bowel air-fluid levels with a few stool-filled loops of small bowel are noted witho ut transition point. Findings are suggestive of ileus with low-grade partial obstruction also in the differential. 3. Postoperative changes of prior right hepatectomy. Pigtail drainage catheter adjacent to the resect ion site is redemonstrated with decreased amount of adjacent fluid. 4. Trace abdominal pelvic ascites with trace right pleural effusion. 5. Splenomegaly. 6. Prior sigmoidectomy with patent colocolonic anastomosis. 7. Additional findings as above. ACT 112: Negative or not required by law. The above report was generated using voice recognition software. It may contain grammatical, syntax o r spelling errors. Electronically signed by: Santiago Daniels M.D. 08/18/2019 7:55 AM
[2019-08-18] MEDS ORDERED: ONDANSETRON INJ 2 MG/ML 2 ML VIAL ONE (08:06)
--- NOTE | 2019-08-18 08:53 | History & Physical Report ---
Date of Service August 18, 2019 Assessment & Plan (1) Pancreatitis: 56 y/o M here with post ERCP pancreatitis Acute post ERCP pancreatitis - Elevated lipase >10k and CT findings positive - NPO, IVF, IV pepcid - IV dilaudid for pain control - recheck lipase in am - GI consult Colon cancer with h/o mets - Pigtail for fluid collection sec to ? leak - recent liver met resection followed by biliary leak - now s/p stent placement. Abnormal UA - started on zosyn. - follow urine culture Hx of PE - continue xarelto 10mgs (2) Abnormal urinalysis: (3) History of pulmonary embolism: (4) Colon cancer: History of Present Illness Primary Care Provider: Berhane Kuo 54 y/o M presented to ED with intractable severe epigastric pain while he was returning back from [facility] after getting ERCP and stent placed for biliary leak. He described the pain to be sharp, radiating to his back. In the ED he was evaluated and noted to have elevated lipase and CT findings suggestive of pancreatitis. He required multiple doses of fentanyl in the ER to help relieve the pain. He also became nausea and received a dose of zofran. At the time of my visit he reports his pain to be better but still severe. Patient has h/o colon cancer which was noted on his routine screening colonoscopy at recto-sigmoid junction in jun 2017 which was resection along with the small liver metastasis. He underwent chemo with Dr. Yun and the surgery was done in [facility]. During surveillance screening he was noted to have another liver metastases and had another resection on Jun 14 2019. Mid July 2019 he had shortness of breath and the work up showed fluid collection due to bile leak. A pigtail catheter was placed. Last wk he went for revision of the pigtail catheter. Repeat CT noted another leakage. For this he underwent the ERCP and stent placement on 08/18/2019. He also has h/o DVT/PE from before his diagnosis of colon cancer and he is on xarelto for that Allergies Allergy/AdvReac Type Severity Reaction Status Date / Time No Known Allergies Allergy Verified 08/18/19 03:58 Home Medications Home Medications Medication Instructions Recorded Confirmed Type rivaroxaban [Xarelto] 10 mg DAILY 08/18/19 08/18/19 History Past Med/Surg History Medical History (Updated 08/18/19 @ 08:53 by Laura Thurston MD) Colon cancer DVT (deep venous thrombosis) (Acute 12/29/13) PE (pulmonary embolism) (Acute) Superficial thrombophlebitis of left leg (Resolved) Surgical History H/O arthroscopic knee surgery (Resolved) Family History (Updated 08/18/19 @ 13:03 by Laura Thurston MD) Father Coronary heart disease Social History Preferred Language: Hungarian Communication Ability: Effective Cake Wrapper Required: No Beliefs That Will Affect Care: None Current Living Situation: Spouse Other Information That Helps Us Care for You: No Feels Safe at Home: Yes Safety Concerns: Feels Safe At This Time Smoking Status: Never smoker Do You Dip or Chew Tobacco: No ; Second Hand Exposure: No ; Tobacco Cessation Education Requested by Patient: No Hx Alcohol Use: No Hx Substance Use: No Review of Systems Constitutional: no fever Eyes: no diplopia and no loss of peripheral vision Ear, Nose, Mouth, Throat: no ear pain Respiratory: no cough and no dyspnea Cardiovascular: no chest pain with activity Gastrointestinal: as per Subjective / HPI Genitourinary: no dysuria, no urinary frequency and no post-void dribbling Musculoskeletal: no back pain and no radicular pain Integumentary: no rash Neurologic: no gait abnormality and no falls Psychiatric: no problem reported Endocrine: no polydipsia Hematologic / Lymphatic: h/o DVT/PE Allergy / Immunological: no lip swelling Physical Exam Constitutional: WD/WN, vitals as above well developed, well nourished and + acute distress Eyes: PERRL, conjunctivae normal, anicteric sclerae ENMT: external ear and nose normal, oropharynx normal Neck: trachea midline, no thyromegaly Respiratory: normal respiratory effort, lungs clear to auscultation Cardiovascular: RRR, no murmur, no edema Gastrointestinal (Abdomen): RUQ Surgical scar + RUQ pig tail catheter +; BS absent in all four quadrants Tenderness across the whole abdomen, worse in epigastric and RUQ. No guarding/rigidity Skin: no rashes, warm and dry Neurologic: PERRL, EOMI, accommodation nl, no face palsy, no dysarthria moves all extremities Psychiatric: A+Ox3, euthymic affect Results & Data Vital Signs (Past 12 Hours) Vital Signs Temp Pulse Resp BP Pulse Ox 08/18/19 08:00 74 20 134/73 96 08/18/19 07:00 81 23 134/80 97 08/18/19 06:00 82 25 H 122/69 98 08/18/19 05:00 61 23 137/72 98 08/18/19 04:31 66 18 132/77 97 08/18/19 03:40 92 08/18/19 02:47 36.3 C L 68 18 134/76 99 (1) Pancreatitis Acute pancreatitis complication: unspecified Chronicity: acute Pancreatitis type: unspecified pancreatitis type Qualified Code(s): K85.90 - Acute pancreatitis without necrosis or infection, unspecified
[2019-08-18] MEDS ORDERED: RIVAROXABAN 10 MG TABLET PO ONE (09:52)
[2019-08-18] MEDS: RIVAROXABAN 10 MG TABLET PO SCH (10:29)
[2019-08-18] MEDS: FAMOTIDINE 20 MG in SYRINGE 3 ML IV SCH ×2 (10:29→21:08)
[2019-08-18] MEDS: ONDANSETRON INJ 2 MG/ML 2 ML VIAL IV PRN ×2 (11:56→18:14)
[2019-08-18] MEDS: HYDROmorphone INJ 0.5 MG/0.5 ML SYR IV PRN ×5 (11:56→23:48)
[2019-08-18] MEDS: PIPERACILLIN/TAZOBACTAM 3.375 GM in DEXTROSE 5% 100 ML IV SCH ×2 (11:56→19:38)
--- NOTE | 2019-08-18 14:21 | Electrocardiogram Report ---
Test Reason : Blood Pressure : / mmHG Vent. Rate : 060 BPM Atrial Rate : 060 BPM P-R Int : 154 ms QRS Dur : 108 ms QT Int : 442 ms P-R-T Axes : 024 077 052 degrees QTc Int : 442 ms Normal sinus rhythm Incomplete right bundle branch block Borderline ECG When compared with ECG of 03-JUL-2017 12:33, No significant change was found Confirmed by Keaton Cooley ([id number]) on 08/18/2019 2:21:16 PM Referred By: REFERRED SELF Confirmed By:Keaton Cooley
--- NOTE | 2019-08-18 16:49 | Consultation Report ---
DATE OF CONSULTATION: 08/18/2019 REASON FOR EVALUATION: Post-ERCP pancreatitis. HISTORY OF PRESENT ILLNESS: The patient is a 54-year-old diagnosed with rectosigmoid colon cancer and a liver met in June 2017 on a screening colonoscopy. The patient had a colon resection and hepatic resection of a single met following chemo. At that point the liver met had been obliterated and there was no residual cancer. The patient had done well until 06/2019 when he was found to have another single metastasis in his right lobe of his liver. In mid-July he developed shortness of breath after having had it resected. Workup showed a bile leak around the right lobe. The surgery was performed at [facility]. A percutaneous drain was placed in a pigtail fashion and then later replaced with a straight catheter, but despite this, he continued to have drainage and it was apparent that there was a continued bile leak from the liver bed where his resection was. Yesterday, he went to [facility] and underwent an ERCP to have a stent placed to decrease the downstream pressure to relieve the flow of bile through the leak. Unfortunately last night he developed severe epigastric pain radiating through to the back and presented to the Emergency Room here where he had a lipase of over 13,000 consistent with post-ERCP pancreatitis. The patient was hospitalized and placed on IV fluids and pain medications and bowel rest. Today, his pain is decreasing with a bit of Dilaudid and IV fluids. His bilirubin is 1.5, alkaline phosphatase 124. Transaminases are normal. CT scan shows swelling of the pancreas consistent with acute pancreatitis. PAST MEDICAL HISTORY: As above. Also has had a DVT with pulmonary embolism in December of 2013. He had arthroscopic knee surgery in the past. FAMILY HISTORY: Positive for coronary disease. SOCIAL HISTORY: The patient is . 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 Does not smoke, does not drink significant amounts of alcohol. REVIEW OF SYSTEMS: Positive for the epigastric and back pain. PHYSICAL EXAMINATION: GENERAL: The patient currently in no acute distress. VITAL SIGNS: Normal. He is afebrile, pulse ox is 96% on room air. HEENT: Shows his pupils to be narrowed. ABDOMEN: Shows a biliary percutaneous drain in the right flank area draining clear yellow bilious material. He has a right upper quadrant scar, which is healing. There is some tenderness throughout the upper abdomen to light palpation. IMPRESSION: The patient has acute post-ERCP pancreatitis. At this point we will continue with our current conservative supportive measures. He does potentially have a urinary tract infection as well and for that reason he is taking antibiotics. Otherwise, I would not be advising those, but the patient should continue lactated Ringer's and can start him on clear liquids at this time and continue pain medications as needed and will continue to monitor him closely for any complications.
[2019-08-19] MEDS: HYDROmorphone INJ 0.5 MG/0.5 ML SYR IV PRN ×4 (03:30→13:16)
[2019-08-19] MEDS: LACTATED RINGER'S 1,000 ML IV SCH ×3 (05:04→20:42)
[2019-08-19] MEDS: PIPERACILLIN/TAZOBACTAM 3.375 GM in DEXTROSE 5% 100 ML IV SCH ×2 (05:05→11:52)
[2019-08-19 06:05] LABS: Basophils # (auto) 0.03 K/uL (0-0.2); Basophils % (auto) 0.2 %; Hematocrit (blood only) 39.9 % (42-52); Hemoglobin 13.3 g/dL (14.0-18.0); Immature Granulocytes # (auto) 0.03 K/uL (0.00-0.02); Immature Granulocytes % (auto) 0.2 %; Lymphocytes % (auto) 7.7 %; Mean Corpuscular Hemoglobin 26.6 pg (25-34); Mean Corpuscular Hgb Conc 33.3 g/dL (32-36); Mean Corpuscular Volume 79.8 fL (80-100); Mean Platelet Volume 10.1 fL (7.4-10.4); Monocytes # (auto) 0.76 K/uL (0.11-0.59); Monocytes % (auto) 5.3 %; Neutrophils # (auto) 12.45 K/uL (1.4-6.5); Neutrophils % (auto) 86.6 %; Platelet Count 153 K/uL (130-400); RDW Coefficient of Variation 14.4 % (11.5-14.5); RDW Standard Deviation 42.4 fL (36.4-46.3); White Blood Count 14.37 K/uL (4.8-10.8)
[2019-08-19 06:37] LABS: BUN Creatinine Ratio 13.7 (10-20); Calcium 8.6 mg/dl (8.5-10.1); Creatinine Clr Calc Pharmacy 112.9 ml/min; Est GFR (African American) 113.7; Est GFR (Non-African American) 98.1; Potassium 4.1 mmol/L (3.5-5.1)
[2019-08-19] MEDS: RIVAROXABAN 10 MG TABLET PO SCH (08:47)
[2019-08-19] MEDS: FAMOTIDINE 20 MG in SYRINGE 3 ML IV SCH ×2 (08:47→21:32)
[2019-08-19] MEDS ORDERED: MAGNESIUM CITRATE 296 ML/BTL PO SCH (16:00)
[2019-08-19] MEDS ORDERED: GLYCERIN ADULT 12 SUPP/BOX SUPP PR STA (16:01)
--- NOTE | 2019-08-19 16:14 | Progress Note ---
DATE: 08/19/2019 SUBJECTIVE: The patient is hospital day #2 for post-ERCP pancreatitis. The patient's abdominal pain is improving, but he is somewhat distended and has not had a bowel movement in 2 days. Blood pressure is 115/73, pulse 99, afebrile with temperature of 37.8. LABORATORY DATA: White count is 14.37, hemoglobin 13.3, platelets are 153,000. Lipase has come down from over 13,000 down to 5310. OBJECTIVE: On exam his abdomen is somewhat distended and tympanitic. There is mild diffuse tenderness, but it is much less tender in the upper abdomen that it was yesterday. He is tolerating clear liquids. IMPRESSION: The patient has post-ERCP pancreatitis. His bile output today is only 30 mL, which is improving. His lipase is falling. He is somewhat distended and tympanitic and I plan on giving him a glycerin suppository and if that is not successful in having him move his bowels we can give him some magnesium citrate.
--- NOTE | 2019-08-19 17:09 | Hospitalist Progress Note ---
Date of Service August 19, 2019 Assessment & Plan (1) Colon cancer: (2) History of pulmonary embolism: (3) Abnormal urinalysis: (4) Pancreatitis: 54 y/o M presented to ED with intractable severe epigastric pain s/p ERCP and stent placement on 08/17 at [facility] for biliary leak. Found to have elevated lipase and CT findings suggestive of pancreatitis. PMhx: Colon cancer - recto-sigmoid junction jun 2017 with the R liver metastasis s/p chemo with Dr. Yun and liver met removal surgery at [facility] x 2 last one on Jun 14 2019. Mid July 2019 found to have fluid collection due to bile leak - pigtail catheter in place and had ERCP and stent placement on 08/17/2019. DVT/PE from before his diagnosis of colon cancer and he is on xarelto. Acute post ERCP pancreatitis - Elevated lipase 13k improved to 5k today with positive CT finding - still with significant pain - LR 150cc/hr, IV pepcid, zofran prn - IV dilaudid for pain control - GI consulted: agreed with plan as above Colon cancer with h/o mets - recent liver met resection followed by biliary leak - now s/p stent placement. - Pigtail for fluid collection Abnormal UA - started on zosyn - dced - Culture negative Hx of PE - continue xarelto 10mgs DVT prop: Xarelto Fluids/Diet: Clears, LR 150cc/hr Code: Full Dispo: home when clinically improved Admission and Anticipated Discharge Date Admission Date: August 18, 2019 Supervising Physician Co-Signing Physician Notes Resident Physician Supervision Note: I independently interviewed and examined the patient and verified the law history and physical, reviewed labs and image studies, discussed the case with the resident Dr. Painting and agree with the findings and care plan. Subjective This AM pt was resting bed. Reported improved pain status post Dilaudid. Reported some nausea but denied any vomiting. Last BM was Thursday night prior to admission, 3 days ago normal. Not passing flatus at this time. Also reports some urinary hesitancy this morning. denies any headache, chest pain, shortness of breath, dysuria. Review of Systems Review of Systems: As per HPI Physical Exam Physical Exam: General: In NAD Neuro: A&O x 4 Pulm: CTAB equal breath sounds bilaterally CV: RRR, no m/r/g, cap refill 2 secs Abdomen:hypoactive BS, moderately TTP on epigastric and LUQ region, incision along RUQ from liver met removal surgeries, non-distended LE: no LE edema, no calf TTP Results & Data ([facility]) Vital Signs (Past 12 Hours) Vital Signs Temp Pulse Resp BP Pulse Ox 08/19/19 15:36 37.8 C H 99 H 16 115/73 95 08/19/19 06:57 37.3 C 94 H 17 124/76 93 Resident Activity Tracking Resident Involvement: Resident Care Provided Care Provided: Adult Hospital Medicine (1) Pancreatitis Acute pancreatitis complication: unspecified Chronicity: acute Pancreatitis type: unspecified pancreatitis type Qualified Code(s): K85.90 - Acute pancreatitis without necrosis or infection, unspecified
[2019-08-19] MEDS ORDERED: GLYCERIN ADULT 12 SUPP/BOX SUPP PR ONE (20:56)
[2019-08-20] MEDS: ACETAMINOPHEN 325 MG TAB PO PRN (00:59)
[2019-08-20] MEDS: LACTATED RINGER'S 1,000 ML IV SCH ×3 (03:17→16:17)
[2019-08-20 07:18] LABS: Basophils # (auto) 0.01 K/uL (0-0.2); Basophils % (auto) 0.1 %; Hematocrit (blood only) 34.7 % (42-52); Hemoglobin 11.4 g/dL (14.0-18.0); Immature Granulocytes # (auto) 0.01 K/uL (0.00-0.02); Immature Granulocytes % (auto) 0.1 %; Lymphocytes # (auto) 0.88 K/uL (1.2-3.4); Lymphocytes % (auto) 7.2 %; Mean Corpuscular Hemoglobin 26.1 pg (25-34); Mean Corpuscular Hgb Conc 32.9 g/dL (32-36); Mean Corpuscular Volume 79.4 fL (80-100); Mean Platelet Volume 9.2 fL (7.4-10.4); Monocytes # (auto) 0.88 K/uL (0.11-0.59); Monocytes % (auto) 7.2 %; Neutrophils # (auto) 10.49 K/uL (1.4-6.5); Neutrophils % (auto) 85.4 %; Platelet Count 122 K/uL (130-400); RDW Coefficient of Variation 14.7 % (11.5-14.5); RDW Standard Deviation 42.8 fL (36.4-46.3); Red Blood Count 4.37 M/uL (4.7-6.1); White Blood Count 12.27 K/uL (4.8-10.8)
[2019-08-20 07:54] LABS: Albumin Level 2.3 gm/dl (3.4-5.0); Calcium 8.1 mg/dl (8.5-10.1); Creatinine Clr Calc Pharmacy 121.1 ml/min; Potassium 3.8 mmol/L (3.5-5.1)
[2019-08-20 08:05] LABS: Albumin Globulin Ratio 0.7 (0.9-2); Bilirubin,Total 2.5 mg/dl (0.2-1); Globulin 3.1 gm/dl (2.5-4.0); Total Protein 5.4 gm/dl (6.4-8.2)
[2019-08-20] MEDS: FAMOTIDINE 20 MG in SYRINGE 3 ML IV SCH ×2 (08:21→21:09)
[2019-08-20] MEDS: RIVAROXABAN 10 MG TABLET PO SCH (08:21)
[2019-08-20] MEDS: ACETAMINOPHEN 1,000 MG/100 ML VIAL IV PRN ×2 (10:24→18:28)
--- NOTE | 2019-08-20 10:37 | Progress Note ---
DATE: 08/20/2019 SUBJECTIVE: The patient was complaining of tachycardia and low-grade fever this morning with temperature of 37.9. He did have 2 large watery bowel movements yesterday after 2 suppositories and magnesium citrate. His abdomen is less distended. The patient does feel somewhat uncomfortable with his fever and tachycardia, however, and a little bit anxious. He is not really having any increased abdominal pain. He had 60 mL of clear bilious drainage out of his tube yesterday. Lipase from today is still pending. His Zosyn that he was on when he was admitted to the hospital and had signs of UTI had been discontinued. He reports no leg pain and continues to take Xarelto. LABORATORIES: His white blood cell count is 12.27, hemoglobin 11.4, platelets are 122,000. BUN 12, creatinine 0.82. Bilirubin is 2.5. AST, ALT and alkaline phosphatase are all normal. Albumin is 2.3. OBJECTIVE: Abdomen shows a right upper quadrant scar, which is healing. The bile drain in the right flank area is patent and has clear yellow bile in it. Abdomen is less distended but still a little bit tympanitic and less tender than it has been over the last 2 days. IMPRESSION: The patient has a low-grade fever and tachycardia. I plan on culturing his blood, urine and bile. We will get a CT scan of the abdomen with IV contrast to reassess the biloma and pancreas to make sure he is not developing a pseudocyst or abscess, and we will likely need to restart his antibiotics.
[2019-08-20] MEDS ORDERED: IOVERSOL 100ml IV PRN (11:03)
[2019-08-20] MEDS ORDERED: PIPERACILL/TAZOBAC CONSULT ACTIVE PRN (11:22)
--- NOTE | 2019-08-20 11:28 | CT Scan Report ---
CT abd pelvis IV con only CLINICAL HISTORY: pancreatitis, biliary drain, worsening pain. fever COMPARISON STUDY: August 18, 2019 TECHNIQUE: The patient was scanned in a dynamic helical fashion during intravenous administration of 94 cc of Optiray 320. A dose lowering technique was utilized adhering to the principles of ALARA. CT DOSE: 718.28 mGycm FINDINGS: Lower chest: Since the prior study, the patient has developed small to moderate bilateral pleural eff usions, and basilar airspace opacities, likely representing compressive atelectasis. Liver: There are postsurgical changes of a partial hepatectomy. The portal and hepatic veins appear p atent as visualized. There is a perihepatic fluid collection with indwelling surgical drain. The flui d collection remain similar in size to the prior study. There are droplets within the fluid as well a s within the ramiro hepatis, are likely iatrogenic secondary to the drain. Gallbladder: Surgically absent. A common bile duct stent is visualized. The distal tip is positioned within the duodenum. Spleen: The spleen remains mildly enlarged measuring 14.3 cm. No splenic masses are visualized. There is perisplenic fluid. Pancreas: There is evidence for pancreatic edema, and increased peripancreatic fluid. There is no demetria dence of pancreatic necrosis. There is no evidence of pancreatic ductal dilatation. Adrenal glands: Unremarkable. Kidneys: There is no hydronephrosis. There are no solid renal masses. There is a 6 mm left renal hypo density, likely representing a cyst. Bowel: There are multiple dilated fluid-filled small bowel loops measuring up to 3.4 cm in diameter. The distal ileum is of normal caliber. The findings could represent either a small bowel obstruction, or ileus given the known pancreatitis. Peritoneum: There is increasing intra-abdominal and pelvic fluid. Vasculature: The abdominal aorta is normal in course and caliber. Adenopathy: None. Pelvic viscera: The bladder, and pelvic viscera are unremarkable. Skeletal structures: No destructive osseous lesions are seen. IMPRESSION: 1. Interval development of [id number] bilateral pleural effusions with dependent bilateral pul monary airspace opacities, likely representing compressive atelectasis. 2. CT evidence of interstitial pancreatitis with increasing peripancreatic fluid collections. No evid ence of pancreatic necrosis. Increasing free abdominal and pelvic fluid. 3. Postsurgical changes of a prior right hepatectomy, with a pigtail drainage catheter draining a per ihepatic fluid collection. 4. Stable mild splenomegaly 5. Dilated fluid-filled small bowel loops, with normal caliber distal ileum. Diagnostic consideration s include small bowel obstruction versus ileus secondary to pancreatitis. ACT 112: Negative or not required by law. Electronically signed by: Byron Knox M.D. 08/20/2019 11:26 AM
--- NOTE | 2019-08-20 11:36 | Progress Note ---
DATE: 08/20/2019 ADDENDUM: The patient had a CT scan of the abdomen and pelvis with IV contrast. The films were reviewed with Dr. Knox, the radiologist. The films showed new bilateral moderate pleural effusions, probably due to atelectasis from splinting from his pancreatitis. The pancreas continues to remain edematous with some surrounding fluid slightly more than previously. The bowel distention earlier is subsiding after he has had 2 bowel movements from the magnesium citrate. The right flank biliary drain continues to remain in good position. There is some remaining fluid and air in that area that is stable. IMPRESSION: The patient has new bilateral pleural effusions of moderate size, which is most likely the cause for his fever and tachycardia. I have advised him to try to stay upright as much as possible and to take deep breaths and cough and use his incentive spirometer, and we will start him on IV antibiotics as a precaution as well.
--- NOTE | 2019-08-20 11:43 | Hospitalist Progress Note ---
Date of Service August 20, 2019 Assessment & Plan (1) Pancreatitis: Mr. Wilson is a 54 year old male who presented to [facility] with intractable severe epigastric pain s/p ERCP and stent placement on 08/17 at [facility] for biliary leak. He was found to have an elevated lipase and CT findings suggestive of pancreatitis. He has a history of colon cancer discovered incidentally on a colonoscopy. This is located at the recto-sigmoid junction with liver metastasis. He is s/p chemo with Dr. Mireles and liver met removal surgery at [facility] x 2, last one on Jun 14 2019. Mid July 2019, he was found to have fluid collection due to bile leak. He had a pigtail catheter placed and underwent ERCP with stent placement on 08/17/2019. Fever/General malaise/Leukocytosis - overnight, had a low grade fever, w/tachycardia. Also endorses general malaise and has a white cell count of 12.2 - concern for infectious source, especially given his pancreatitis and ileus are improving - blood, urine and bile cultures ordered - repeat CT abdomen and pelvis ordered -> b/l small to moderate pleural effusions w/atelectasis -> pancreatitis with increasing peripancreatic fluid collections and increasing free abdominal and pelvic fluid. - restart empiric zosyn - incentive spirometer ordered given atelectasis and effusions Acute post ERCP pancreatitis - Lipase continues to trend downwards, however evidence of ongoing pancreatic inflammation on repeat CT scan today - Continue LR 150cc/hr, IV pepcid, zofran prn - IV dilaudid and p.o. tylenol for pain control - continue clear liquid diet - GI following Ileus - CT w/dilated fluid-filled small bowel loops - GI ordered glycerin suppositories x2 and magnesium citrate - had two large BMs overnight Colon cancer with h/o mets - recent liver met resection followed by biliary leak - now s/p stent placement. - Pigtail for biliary drainage Abnormal UA - Culture negative, however patient did report some urinary symptoms - repeat urine cx obtained Hx of PE - history of DVT/PE from before his diagnosis of colon cancer is on xarelto. - continue xarelto 10mg daily Code: Full DVT prophylaxis: Xarelto Fluids/Diet: Clears, LR 150cc/hr Disposition: remains on med/surg - to be discharged home once clinically improved (2) Colon cancer: (3) History of pulmonary embolism: (4) Abnormal urinalysis: (5) Pleural effusion associated with pancreatitis: (6) Fever: Admission and Anticipated Discharge Date Admission Date: August 18, 2019 Supervising Physician Co-Signing Physician Notes Resident Physician Supervision Note: I independently interviewed and examined the patient and verified the law history and physical, reviewed labs and image studies, discussed the case with the resident Dr. Castillo and agree with the findings and care plan. Subjective Mr. Wilson reports that he feels unwell today. He describes generalized malaise, headache, fever, and ongoing abdominal pain. He states that after his suppositories and magnesium citrate, he had 2 large liquid bowel movements at 1 AM earlier this morning. He reports that he is abdominal pain has shifted from a typical pancreatitis pain that radiates to the back to generalized abdominal pain. He reports a decreased appetite. Review of Systems Constitutional: + fever, + fatigue and + anorexia; no chills Respiratory: + cough; no dyspnea and no wheezing Cardiovascular: no chest pain and no edema Gastrointestinal: + abdominal pain and + diarrhea/loose stools; no nausea, no vomiting and no melena Physical Exam Constitutional: WD/WN, vitals as above Respiratory: normal respiratory effort, lungs clear to auscultation Cardiovascular: RRR, no murmur, no edema Gastrointestinal (Abdomen): incision over abdomen, clean and dry. Healing well Biliary drain w/yellow fluid draining Abdomen less distended than yesterday, not tympanic. TTP throughout, worst over left side Psychiatric: A+Ox3, euthymic affect Results & Data ([facility]) Vital Signs (Past 12 Hours) Vital Signs Temp Pulse Pulse Resp BP Pulse Ox 08/20/19 09:00 37.9 C H 104 H 08/20/19 07:30 37.5 C 95 H 18 138/75 94 08/20/19 03:18 37.3 C 08/20/19 00:56 37.6 C H 102 H 135/69 Resident Activity Tracking Resident Involvement: Resident Care Provided Care Provided: Adult Hospital Medicine (1) Pancreatitis Acute pancreatitis complication: unspecified Chronicity: acute Pancreatitis type: unspecified pancreatitis type Qualified Code(s): K85.90 - Acute pancreatitis without necrosis or infection, unspecified
[2019-08-20] MEDS ORDERED: PIPERACILLIN/TAZOBACTAM 3.375 GM in DEXTROSE 5% 100 ML IV ONE (12:00)
[2019-08-20] MEDS: PIPERACILLIN/TAZOBACTAM 3.375 GM in DEXTROSE 5% 100 ML IV SCH (17:43)
--- NOTE | 2019-08-20 19:13 | XRay Report ---
XR chest 1V portable CLINICAL HISTORY: sob, fever COMPARISON STUDY: 07/07/2017 FINDINGS: The heart is normal in size. There is a left-sided A-Port catheter. There is a right-sided subhepatic drain. There are bilateral pleural effusions with associated bibasilar airspace opacities. [There is no failure. IMPRESSION: Interval development of bilateral pleural effusions with associated bibasilar airspace op acities, atelectasis versus pneumonia. ACT 112: Negative or not required by law. Electronically signed by: Byron Knox M.D. 08/20/2019 7:12 PM
[2019-08-21] MEDS: LACTATED RINGER'S 1,000 ML IV SCH ×3 (01:29→20:06)
[2019-08-21] MEDS: PIPERACILLIN/TAZOBACTAM 3.375 GM in DEXTROSE 5% 100 ML IV SCH ×3 (02:55→18:18)
[2019-08-21] MEDS: ACETAMINOPHEN 1,000 MG/100 ML VIAL IV PRN ×3 (03:02→22:12)
--- NOTE | 2019-08-21 06:54 | Hospitalist Progress Note ---
Date of Service August 21, 2019 Assessment & Plan (1) Pancreatitis: Mr. Wilson is a 54 year old male who presented to [facility] with intractable severe epigastric pain s/p ERCP and stent placement on 08/17 at [facility] for biliary leak. He was found to have an elevated lipase and CT findings suggestive of pancreatitis. He has a history of colon cancer discovered incidentally on a colonoscopy. This is located at the recto-sigmoid junction with liver metastasis. He is s/p chemo with Dr. Mireles and liver met removal surgery at [facility] x 2, last one on Jun 14 2019. Mid July 2019, he was found to have fluid collection due to bile leak. He had a pigtail catheter placed and underwent ERCP with stent placement on 08/17/2019 at [facility]. He presented to [facility] on 08/18/2019 due to post-ERCP pancreatitis. He was treated with bowel rest and IVF, however on 08/20/2019, he began to spike fevers, and had an increased WCC. Blood, urine and bile cultures were collected, and a repeat CT abdomen and pelvis was ordered. Biliary Tract Infection - bile culture growing gram negative bacilli - continues to have high output from biliary drain - discussed with GI, thank you for recommendations -> will likely require reinstrumentation +/- surgical intervention or washout -> discussed w/surgeon at [facility] - accepted for transfer, awaiting bed - blood cx drawn x2 and pending - continue zosyn to cover for typical intra-abdominal pathogens Acute post ERCP pancreatitis, complicated by b/l pleural effusions - Lipase continues to trend downwards, normal at 370 today - repeat CT abdomen and pelvis on 08/20/2019 -> b/l small to moderate pleural effusions w/atelectasis -> pancreatitis with increasing peripancreatic fluid collections and increasing free abdominal and pelvic fluid. - incentive spirometer ordered given atelectasis and effusions - Continue LR 100cc/hr, IV pepcid, zofran prn - IV dilaudid and tylenol for pain control - Tolerating clear liquids. given improvement in pancreatitis -> full liquid diet started today w/Boost nutritional supplementation Ileus - CT w/dilated fluid-filled small bowel loops - GI ordered glycerin suppositories x2 and magnesium citrate - now having ongoing liquid brown stools -> c diff negative Colon cancer with h/o mets - recent liver met resection followed by biliary leak - now s/p stent placement. - biliary drain in place Abnormal UA - culture on admission negative, repeat culture pending Hypokalemia - potassium 3.2 today - repleted. Recheck tomorrow Malnutrition - evidenced by low albumin, low protein and low lymphocyte count - related to malignancy and poor p.o. intake - supplement w/Boost, encourage p.o. 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 - continue xarelto 10mg daily Code: Full DVT prophylaxis: Xarelto Fluids/Diet: Full liquid diet, LR 100cc/hr Disposition: remains on med/surg - to be transferred to [facility] once bed and transport available (2) Colon cancer: (3) History of pulmonary embolism: (4) Abnormal urinalysis: (5) Pleural effusion associated with pancreatitis: (6) Fever: (7) Hypokalemia: (8) Biliary tract infection: Admission and Anticipated Discharge Date Admission Date: August 18, 2019 Supervising Physician Co-Signing Physician Notes Resident Physician Supervision Note: I independently interviewed and examined the patient and verified the law history and physical, reviewed labs and image studies, discussed the case with the resident Dr. Castillo and agree with the findings and care plan. Subjective Mr. Wilson reports he continues to feel unwell. He has had several liquid BMs. He has not had much of an appetite, and has mostly been drinking water. He reports continued fever, and general malaise. He remains with abdominal pain and high output from his biliary drain. He also notes trouble lying on his side to sleep due to shortness of breath. Review of Systems Constitutional: + fever, + fatigue and + anorexia Respiratory: + cough and + dyspnea; no wheezing Cardiovascular: no chest pain, no palpitations and no edema Gastrointestinal: + abdominal pain, + change in bowel habits and + diarrhea/loose stools; no vomiting and no melena Physical Exam Constitutional: WD/WN, vitals as above Respiratory: Auscultation: + diminished lung sounds (at bases of lungs) Cardiovascular: RRR, no murmur, no edema Gastrointestinal (Abdomen): Percussion/Palpation: + abdomen tender and abdomen soft biliary drain in place with green fluid Results & Data ([facility]) Vital Signs (Past 12 Hours) Vital Signs Temp Pulse Resp BP Pulse Ox 08/21/19 03:05 97 H 91 08/21/19 03:02 37.9 C H 08/21/19 00:00 92 08/20/19 22:59 37.5 C 83 16 121/66 95 08/20/19 19:38 37.6 C H 98 H 93 Resident Activity Tracking Resident Involvement: Resident Care Provided Care Provided: Adult Hospital Medicine (1) Pancreatitis Acute pancreatitis complication: unspecified Chronicity: acute Pancreatitis type: unspecified pancreatitis type Qualified Code(s): K85.90 - Acute pancreatitis without necrosis or infection, unspecified
[2019-08-21 07:26] LABS: Albumin Globulin Ratio 0.6 (0.9-2); Albumin Level 2.2 gm/dl (3.4-5.0); BUN Creatinine Ratio 14.5 (10-20); Bilirubin,Total 1.7 mg/dl (0.2-1); Calcium 8.2 mg/dl (8.5-10.1); Creatinine Clr Calc Pharmacy 139.9 ml/min; Est GFR (African American) 124.2; Est GFR (Non-African American) 107.1; Globulin 3.6 gm/dl (2.5-4.0); Potassium 3.2 mmol/L (3.5-5.1); Total Protein 5.8 gm/dl (6.4-8.2)
[2019-08-21 09:13] LABS: Basophils # (auto) 0.02 K/uL (0-0.2); Basophils % (auto) 0.2 %; Eosinophils # (auto) 0.13 K/uL (0-0.5); Eosinophils % (auto) 1.2 %; Hematocrit (blood only) 31.6 % (42-52); Hemoglobin 10.8 g/dL (14.0-18.0); Immature Granulocytes # (auto) 0.03 K/uL (0.00-0.02); Immature Granulocytes % (auto) 0.3 %; Lymphocytes # (auto) 0.65 K/uL (1.2-3.4); Lymphocytes % (auto) 6.1 %; Mean Corpuscular Hemoglobin 26.5 pg (25-34); Mean Corpuscular Hgb Conc 34.2 g/dL (32-36); Mean Corpuscular Volume 77.5 fL (80-100); Monocytes # (auto) 0.92 K/uL (0.11-0.59); Monocytes % (auto) 8.7 %; Neutrophils # (auto) 8.82 K/uL (1.4-6.5); Neutrophils % (auto) 83.5 %; Platelet Count 131 K/uL (130-400); RDW Coefficient of Variation 14.8 % (11.5-14.5); RDW Standard Deviation 42.1 fL (36.4-46.3); Red Blood Count 4.08 M/uL (4.7-6.1); White Blood Count 10.57 K/uL (4.8-10.8)
[2019-08-21] MEDS: FAMOTIDINE 20 MG in SYRINGE 3 ML IV SCH ×2 (09:20→20:34)
[2019-08-21] MEDS: RIVAROXABAN 10 MG TABLET PO SCH (09:20)
[2019-08-21] MEDS ORDERED: POTASSIUM CHLORIDE 20 MEQ TABCR PO ONE (09:30)
--- NOTE | 2019-08-21 10:48 | Progress Note ---
DATE: 08/21/2019 SUBJECTIVE: The patient reports that he has had fevers off and on through the night when his Tylenol dose seems to wear off as abdominal pressure seems to be getting worse and it appears more distended. He did have some liquid bowel movements through the night and is unable to sleep on one side as it makes him cough a lot, probably from his pleural effusions. OBJECTIVE: VITAL SIGNS: Normal. He is afebrile today. O2 saturation on room air is 94%, temperature is 37, blood pressure is 122/71, pulse 82. LABORATORY DATA: Does have continuous drainage of bile in his right flank drainage bag. His nutritional parameters are poor with hemoglobin of 10.8 with MCV of 77.5. His white count is 10.5 with total lymphocyte count of 650, albumin is low at 2.2, total protein is low at 5.8. Lipase today is 370, which is steady improvement. Blood cultures are no growth so far, but the culture from his bile drainage tube is growing gram negative bacillus. IMPRESSION: The patient continues to show improvement in his laboratory work from his pancreatitis with a steady drop in his lipase, but his abdomen continues to remain distended and somewhat uncomfortable. He is tolerating minimal amounts of clear liquids and his nutritional parameters are low, so I plan on adding full liquid nutritional supplements to help heal. The biggest concern is the infected bile pocket in the right flank. I believe that this is going to require reinstrumentation and possibly flushing to hopefully allow this to heal better. It may even require repeat operation if it does not heal and continues to remain infected. We discuss transferring him back to [facility] so that this can be accomplished, this is not possible to be done here. Also check a stool for C. diff and change his Tylenol interval to q. 6 hours instead of q. 8 hours. This plan was reviewed with the patient and his hospitalist and rounding resident as well.
[2019-08-21] MEDS: ACETAMINOPHEN 325 MG TAB PO PRN (15:24)
--- NOTE | 2019-08-21 15:47 | Discharge Summary ---
Date of Service August 21, 2019 Admission HPI Per Admitting Provider 54 y/o M presented to ED with intractable severe epigastric pain while he was returning back from [facility] after getting ERCP and stent placed for biliary leak. He described the pain to be sharp, radiating to his back. In the ED he was evaluated and noted to have elevated lipase and CT findings suggestive of pancreatitis. He required multiple doses of fentanyl in the ER to help relieve the pain. He also became nausea and received a dose of zofran. At the time of my visit he reports his pain to be better but still severe. Patient has h/o colon cancer which was noted on his routine screening colonoscop y at recto-sigmoid junction in jun 2017 which was resection along with the small liver metastasis. He underwent chemo with Dr. Yun and the surgery was done in [facility]. During surveillance screening he was noted to have another liver metastases and had another resection on Jun 14 2019. Mid July 2019 he had shortness of breath and the work up showed fluid collection due to bile leak. A pigtail catheter was placed. Last wk he went for revision of the pigtail catheter. Repeat CT noted another leakage. For this he underwent the ERCP and stent placement on 08/18/2019. He also has h/o DVT/PE from before his diagnosis of colon cancer and he is on xarelto for that Admission Exam Per Admitting Provider Constitutional: WD/WN, vitals as above well developed, well nourished and + acute distress Eyes: PERRL, conjunctivae normal, anicteric sclerae ENMT: external ear and nose normal, oropharynx normal Neck: trachea midline, no thyromegaly Respiratory: normal respiratory effort, lungs clear to auscultation Cardiovascular: RRR, no murmur, no edema Gastrointestinal (Abdomen): RUQ Surgical scar + RUQ pig tail catheter +; BS absent in all four quadrants Tenderness across the whole abdomen, worse in epigastric and RUQ. No guarding/rigidity Skin: no rashes, warm and dry Neurologic: PERRL, EOMI, accommodation nl, no face palsy, no dysarthria moves all extremities Psychiatric: A+Ox3, euthymic affect Principal Diagnosis Biliary Tract Infection, Pancreatitis, Pleural Effusions Discharge Exam Constitutional WD/WN, vitals as above Respiratory normal respiratory effort and + cough Auscultation: + diminished lung sounds (at lung bases) Cardiovascular RRR, no murmur, no edema Gastrointestinal (Abdomen) Percussion/Palpation: + abdomen tender (generally mildly TTP. ) and abdomen soft biliary drain in place, draining green fluid Skin no rashes, warm and dry Discharge Data Allergies Allergy/AdvReac Type Severity Reaction Status Date / Time No Known Allergies Allergy Verified 08/18/19 03:58 Consultations 08/18/19 06:52 ED Decision to Admit Stat 08/18/19 09:52 Consult Gastroenterology Routine 08/21/19 11:35 Burn CD for patient Routine Ordered Studies 08/18/19 03:14 CT abd pelvis IV con only Urgent 08/20/19 10:03 CT abd pelvis IV con only Urgent Hospital Course (1) Biliary tract infection: Mr. Wilson is a 54 year old male who presented to [facility] with intractable severe epigastric pain s/p ERCP and stent placement on 08/17 at [facility] for biliary leak. He was found to have an elevated lipase and CT findings suggestive of pancreatitis. He has a history of colon cancer discovered incidentally on a colonoscopy. This is located at the recto-sigmoid junction with liver metastasis. He is s/p chemo with Dr. Mireles and liver met removal surgery at [facility] x 2, last one on Jun 14 2019. Mid July 2019, he was found to have fluid collection due to bile leak. He had a pigtail catheter placed and underwent ERCP with stent placement on 08/17/2019 at [facility]. He presented to [facility] on 08/18/2019 due to post-ERCP pancreatitis. He was treated with bowel rest and IVF, however on 08/20/2019, he began to spike fevers, and had an increased WCC. Blood, urine and bile cultures were collected, and a repeat CT abdomen and pelvis was ordered. Biliary Tract Infection - bile culture growing gram negative bacilli - continues to have high output from biliary drain - discussed with GI -> will likely require reinstrumentation +/- surgical intervention or washout -> discussed w/surgeon at [facility] - accepted for transfer -> patient transferred to [facility] on 08/21/2019 - blood cx drawn x2 and pending - on zosyn to cover for typical intra-abdominal pathogens Acute post ERCP pancreatitis, complicated by b/l pleural effusions - Lipase continues to trend downwards, normal at 370 today - repeat CT abdomen and pelvis on 08/20/2019 -> b/l small to moderate pleural effusions w/atelectasis -> pancreatitis with increasing peripancreatic fluid collections and increasing free abdominal and pelvic fluid. - incentive spirometer ordered given atelectasis and effusions - Continue LR 100cc/hr, IV pepcid, zofran prn - IV dilaudid and tylenol for pain control - Tolerating clear liquids. given improvement in pancreatitis -> full liquid diet started today w/Boost nutritional supplementation Ileus - CT w/dilated fluid-filled small bowel loops - GI ordered glycerin suppositories x2 and magnesium citrate on 08/19/2019 - now having ongoing liquid brown stools -> c diff negative Colon cancer with h/o mets - recent liver met resection followed by biliary leak - now s/p stent placement. - biliary drain in place Abnormal UA - culture on admission negative, repeat culture pending Hypokalemia - potassium 3.2 today - repleted Malnutrition - evidenced by low albumin, low protein and low lymphocyte count - related to malignancy and poor p.o. 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 - continue xarelto 10mg daily (2) Hypokalemia: (3) Fever: (4) Pleural effusion associated with pancreatitis: (5) Colon cancer: (6) History of pulmonary embolism: (7) Abnormal urinalysis: (8) Pancreatitis: (9) PE (pulmonary embolism): Total Time Total Time Spent Total Time Spent (In Minutes): See attending addendum Discharge Plan Discharge Items Patient Disposition: Transfer Acute Care Hospital Reason For Visit: ACUTE PANCREATITIS Discharge Diagnosis: Biliary Tract Infection, Acute Pancreatitis, Pleural Effusions Condition on Discharge: Fair Activity: Resume your previous activity Non-emergency contact: Primary Care Provider Call non-emergency contact if: you have any medication questions Follow-up/Referrals: Berhane Kuo [Primary Care Provider] - Diet: Full liquid Addtl Attending Provider Instructions: Mr. Wilson is a 54 year old male who presented to [facility] with intractable severe epigastric pain s/p ERCP and stent placement on 08/17 at [facility] for biliary leak. He was found to have an elevated lipase and CT findings suggestive of pancreatitis. He has a history of colon cancer discovered incidentally on a colonoscopy. This is located at the recto-sigmoid junction with liver metastasis. He is s/p chemo with Dr. Mireles and liver met removal surgery at [facility] x 2, last one on Jun 14 2019. Mid July 2019, he was found to have fluid collection due to bile leak. He had a pigtail catheter placed and underwent ERCP with stent placement on 08/17/2019 at [facility]. He presented to [facility] on 08/18/2019 due to post-ERCP pancreatitis. He was treated with bowel rest and IVF, however on 08/20/2019, he began to spike fevers, and had an increased WCC. Blood, urine and bile cultures were collected, and a repeat CT abdomen and pelvis was ordered. Biliary Tract Infection - bile culture growing gram negative bacilli - continues to have high output from biliary drain - discussed with GI, thank you for recommendations -> will likely require reinstrumentation +/- surgical intervention or washout - blood cx drawn x2 and pending - continue zosyn to cover for typical intra-abdominal pathogens Acute post ERCP pancreatitis, complicated by b/l pleural effusions - Lipase continues to trend downwards, normal at 370 today - repeat CT abdomen and pelvis on 08/20/2019 -> b/l small to moderate pleural effusions w/atelectasis -> pancreatitis with increasing peripancreatic fluid collections and increasing free abdominal and pelvic fluid. - incentive spirometer ordered given atelectasis and effusions - Continue LR 100cc/hr, IV pepcid, zofran prn - IV dilaudid and tylenol for pain control - given improvement in pancreatitis -> full liquid diet started today w/Boost nutritional supplementation Ileus - CT w/dilated fluid-filled small bowel loops - GI ordered glycerin suppositories x2 and magnesium citrate - now having ongoing liquid brown stools -> c diff negative Colon cancer with h/o mets - recent liver met resection followed by biliary leak - now s/p stent placement. - biliary drain in place Abnormal UA - culture on admission negative, repeat culture pending Hypokalemia - potassium 3.2 today - repleted. Malnutrition - evidenced by low albumin, low protein and low lymphocyte count - related to malignancy and poor p.o. intake - supplement w/Boost, encourage p.o. 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 - continue xarelto 10mg daily Code: Full DVT prophylaxis: Xarelto Fluids/Diet: Full liquid diet, LR 100cc/hr Pending Studies at Discharge: Yes Studies:: Urine culture, blood cultures x 2 Stand-Alone Forms: [facility] [employer] Sk[employer] Items Patient informed of condition?: Yes DNR: No Discharge Level of Care: Other Communicable Disease: No Discharge Prognosis: Stable Lines: Peripheral IV Urinary Catheter: No Medications and DC Order Prescriptions: Continued Xarelto 10 mg tablet 10 mg DAILY RF: 0 Discharge Orders: Discharge Order (Routine); Ordered 08/21/19 Ordered By: Judd Castillo Admission Data Admit Date/Time: 08/18/19 08:52 Attending Provider: Jose Choudhary Admit Provider: Laura Thurston Primary Care Provider: Berhane Kuo Other Providers: Michael Garcia ; Donal Caballero ; Laura Thurston Other Interventions: Discharge Summary Assessment (RN) Last Done: 08/22/19 06:12 DC Date/Time DO NOT enter until pt leaves facility: 08/22/19 08:30 Supervising Physician Co-Signing Physician Notes Resident Physician Supervision Note: I independently interviewed and examined the patient and verified the law history and physical, reviewed labs and image studies, discussed the case with the resident Dr. Castillo and agree with the findings and care plan.
[2019-08-22] MEDS: PIPERACILLIN/TAZOBACTAM 3.375 GM in DEXTROSE 5% 100 ML IV SCH (02:19)
[2019-08-22 05:17] LABS: Basophils # (auto) 0.01 K/uL (0-0.2); Basophils % (auto) 0.1 %; Eosinophils # (auto) 0.21 K/uL (0-0.5); Eosinophils % (auto) 2.6 %; Immature Granulocytes # (auto) 0.02 K/uL (0.00-0.02); Immature Granulocytes % (auto) 0.3 %; Lymphocytes # (auto) 0.65 K/uL (1.2-3.4); Lymphocytes % (auto) 8.2 %; Mean Corpuscular Hemoglobin 26.2 pg (25-34); Mean Corpuscular Volume 78.5 fL (80-100); Mean Platelet Volume 9.4 fL (7.4-10.4); Monocytes # (auto) 0.79 K/uL (0.11-0.59); Monocytes % (auto) 9.9 %; Neutrophils # (auto) 6.27 K/uL (1.4-6.5); Neutrophils % (auto) 78.9 %; Platelet Count 132 K/uL (130-400); RDW Coefficient of Variation 14.9 % (11.5-14.5); RDW Standard Deviation 42.9 fL (36.4-46.3); Red Blood Count 3.82 M/uL (4.7-6.1); White Blood Count 7.95 K/uL (4.8-10.8)
[2019-08-22 05:27] LABS: Mean Corpuscular Hgb Conc 33.3 g/dL (32-36)
[2019-08-22 05:37] LABS: Albumin Level 2.2 gm/dl (3.4-5.0); BUN Creatinine Ratio 12.3 (10-20); Calcium 7.9 mg/dl (8.5-10.1); Creatinine Clr Calc Pharmacy 136.1 ml/min; Est GFR (African American) 122.7; Est GFR (Non-African American) 105.9; Potassium 3.2 mmol/L (3.5-5.1)
[2019-08-22 05:44] LABS: Albumin Globulin Ratio 0.6 (0.9-2); Bilirubin,Total 1.1 mg/dl (0.2-1); Globulin 3.4 gm/dl (2.5-4.0); Total Protein 5.6 gm/dl (6.4-8.2)
[2019-08-22] MEDS: LACTATED RINGER'S 1,000 ML IV SCH (06:02)
[2019-08-22] MEDS: ACETAMINOPHEN 1,000 MG/100 ML VIAL IV PRN (06:05)
== END 2019-08-22 08:30 | disposition short-term general hospital (02) | DRG 393 ==
LOC: ED 02:41 → SUATTDRO 08:52 → 3N 08:52

== ENCOUNTER 2025-04-19 11:54 | Inpatient (IN) ==
--- NOTE | 2025-04-19 12:39 | Emergency Department Note ---
Impression & Plan Anaplasmosis, Fever, Thrombocytopenia, Abnormal LFTs, Acute hyponatremia, Elevated troponin I level ED Provider Note NAME: HA SOARES AGE: 60 SEX: M : 1965 ARRIVES VIA: Walk-In INFORMANT: Patient, ED PROVIDER(S): Fernie Venegas DO CHIEF COMPLAINT: Fever HPI: The patient is a 60-year-old male who presented to the emergency department for an evaluation of fever. The patient has a history of cancer. He has metastatic colon cancer. He is being treated at the cancer center. The patient went there today for his chemotherapy. Last chemotherapy was 2 weeks ago. The patient was sent to the emergency department because of fever. His Tmax was 102.3. He denies having any dysuria or frequency. He denies having any back pain. The patient was exposed to a neighbor kids that were ill recently. He is not sure exactly the head. ROS: See above HPI for pertinent positives & negatives. A total of 10 systems reviewed and were otherwise negative. PAST MEDICAL HISTORY: See Below PAST SURGICAL HISTORY: See Below FAMILY HISTORY: See Below SOCIAL HISTORY: See Below HOME MEDICATIONS: See Below ALLERGIES: See Below VITALS: See Below PHYSICAL EXAMINATION: GENERAL: The patient is awake and alert. He does appear uncomfortable. EYES: The conjunctivae are clear. The pupils are round and reactive. EARS, NOSE, MOUTH AND THROAT: The nose is without any evidence of any deformity. NECK: The neck is nontender and supple. RESPIRATORY: Tachypnea was noted. There is no conversational dyspnea. Lungs overall are clear. CARDIOVASCULAR: Tachycardic and regular heart sounds were noted to auscultation. There is no definite murmur. GASTROINTESTINAL: The abdomen is soft. Abdomen is nontender. MUSCULOSKELETAL/EXTREMITIES: There is no evidence of gross deformity full range of motion is noted in the hips and shoulders. SKIN: There is no obvious evidence of any rash. There are no petechiae, pallor or cyanosis noted. NEUROLOGIC: Patient is awake alert and oriented x3 MEDICAL DECISION MAKING: The patient is a 60-year-old male who presented to the emergency department for fever. The patient's had fever and malaise. The patient does have a history of cancer and received chemotherapy 2 weeks ago. Initially I thought he was going to be neutropenic. He was treated with IV fluids as well as IV cefepime in the emergency department. He was reevaluated multiple times. I discussed the patient's laboratory and radiographic studies with him. He was found to have thrombocytopenia. He does have baseline thrombocytopenia but this was lower than his normal platelet count. He was also found to have elevation in his LFTs. He had no obvious exposure to ticks when I initially questioned him but tickborne illness panel was ordered and the patient was positive for anaplasmosis. This would fit his overall condition so I did order doxycycline for the patient as well. I discussed patient's condition with the on-call [facility]. They have agreed to evaluate the patient in the emergency department. Triage Nursing notes reviewed. Prior medical records reviewed Vital Signs: reviewed and remarkable for tachycardia tachypnea and initial hypotension. Differential diagnosis: Viral syndrome, otitis, pharyngitis, pneumonia, influenza, meningitis, urinary tract infection, sepsis, bacteremia, as well as other pathologies. ER treatment provided: See below Diagnostics interpreted by me: ECG: EKG was obtained in the emergency department. My interpretation is sinus tachycardia at 101 bpm. There were no PVCs noted. ST depression with T wave inversions were noted in the anterior leads. This was compared to a tracing from May 05, 2024. No changes were noted. Cardiac Monitoring: An order was placed for continuous cardiac monitoring. The monitor shows a rate of 106 bpm with sinus tachycardia. Laboratory studies: As stated above and show below. Imaging studies: See below. Radiographic imaging was reviewed by myself Consultation(s): I discussed this case with Dr. Akers who is on-call for the [facility] group. Past Med/Surg History Problem List (Updated 04/19/25 @ 14:35 by Fernie Venegas DO) Anaplasmosis (Acute) Elevated troponin I level (Acute) Acute hyponatremia (Acute) Abnormal LFTs (Acute) Thrombocytopenia (Acute) Neoplasm of chest wall (Acute) Metastatic colon cancer to liver (Acute) Abnormal chest CT Multiple pulmonary nodules Hypoxic respiratory failure Short of breath on exertion Biliary tract infection Hypokalemia Fever (Acute) Pleural effusion associated with pancreatitis History of pulmonary embolism Abnormal urinalysis Pancreatitis (Acute) Acute UTI (Acute) PE (pulmonary embolism) (Acute) DVT (deep venous thrombosis) (Acute 12/29/13) Medical History Colon cancer Family History Father Coronary heart disease Social History Smoking Status: Never smoker Second Hand Exposure: No; Do You Dip or Chew Tobacco: No; Hx Alcohol Use: No Hx Substance Use: No Preferred Language: Cymro Communication Ability: Effective Senior 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 Required: No Beliefs That Will Affect Care: None marital status: Current Living Situation: Spouse Feels Safe at Home: Yes Assistive Devices: None Allergies Allergies Allergy/AdvReac Type Severity Reaction Status Date / Time No Known Drug Allergies Allergy Verified 12/15/24 14:20 Home Meds Home Medications Medication Instructions Recorded Confirmed rivaroxaban 20 mg tablet (Xarelto) 20 mg PO DAILY 12/01/24 04/19/25 fentanyl 100 mcg/hr transdermal 100 mcg transdermal Q72H 04/19/25 04/19/25 patch fentanyl 25 mcg/hr transdermal 25 mcg transdermal Q72H 04/19/25 04/19/25 patch hydromorphone 4 mg tablet 4 mg PO Q4H PRN Pain 04/19/25 04/19/25 Previous Rx's Medication Instructions Recorded Portable Oxygen #1 ea 12/06/24 Results & Data (ED) Vital Signs Vital Signs - 24 hr 04/19/25 12:09 04/19/25 12:43 04/19/25 12:47 Temperature 36.3 C L Temperature Source Oral Pulse Rate 112 H 101 H Pulse Rate [Apical] 103 H Pulse Rate from SpO2 Sensor Pulse Rhythm Pulse Rhythm [Apical] Regular Pulse Strength [Apical] Normal Respiratory Rate 24 16 Respiratory Effort / Characteristics Non-Labored Spontaneous Non-Labored Spontaneous Respiratory Depth Normal Normal Respiratory Pattern Regular Blood Pressure 98/67 L Blood Pressure [Right Arm] 103/63 Blood Pressure Mean 77 Blood Pressure Mean [Right Arm] 76 Blood Pressure Position [Right Arm] Sitting Pulse Oximetry 94 98 Oxygen Delivery Method Nasal Cannula Nasal Cannula Oxygen Flow Rate 2 2 Sepsis Recent Fever Within 48 Hours No Sepsis New/Unexplained Change in Mental Status No Sepsis Action Taken by Nursing No Action Required 04/19/25 12:47 04/19/25 13:00 04/19/25 13:15 Temperature Temperature Source Pulse Rate 100 H 97 H Pulse Rate [Apical] Pulse Rate from SpO2 Sensor 97 H Pulse Rhythm Regular Pulse Rhythm [Apical] Pulse Strength [Apical] Respiratory Rate 16 23 Respiratory Effort / Characteristics Respiratory Depth Respiratory Pattern Blood Pressure 113/75 108/69 Blood Pressure [Right Arm] Blood Pressure Mean 89 82 Blood Pressure Mean [Right Arm] Blood Pressure Position [Right Arm] Pulse Oximetry 95 100 Oxygen Delivery Method Nasal Cannula Oxygen Flow Rate 2 Sepsis Recent Fever Within 48 Hours Sepsis New/Unexplained Change in Mental Status Sepsis Action Taken by Nursing 04/19/25 13:15 04/19/25 13:45 04/19/25 14:00 Temperature Temperature Source Pulse Rate 100 H Pulse Rate [Apical] Pulse Rate from SpO2 Sensor Pulse Rhythm Pulse Rhythm [Apical] Pulse Strength [Apical] Respiratory Rate 23 Respiratory Effort / Characteristics Respiratory Depth Respiratory Pattern Blood Pressure 108/69 110/67 113/71 Blood Pressure [Right Arm] Blood Pressure Mean 81 82 97 Blood Pressure Mean [Right Arm] Blood Pressure Position [Right Arm] Pulse Oximetry Oxygen Delivery Method Oxygen Flow Rate Sepsis Recent Fever Within 48 Hours Sepsis New/Unexplained Change in Mental Status Sepsis Action Taken by Nursing 04/19/25 14:15 04/19/25 14:30 04/19/25 14:33 Temperature Temperature Source Pulse Rate 103 H 103 H 103 H Pulse Rate [Apical] Pulse Rate from SpO2 Sensor 104 H Pulse Rhythm Pulse Rhythm [Apical] Pulse Strength [Apical] Respiratory Rate 26 H 25 H 30 H Respiratory Effort / Characteristics Respiratory Depth Respiratory Pattern Blood Pressure 111/67 114/67 114/67 Blood Pressure [Right Arm] Blood Pressure Mean 76 76 82 Blood Pressure Mean [Right Arm] Blood Pressure Position [Right Arm] Pulse Oximetry 94 91 93 Oxygen Delivery Method Oxygen Flow Rate Sepsis Recent Fever Within 48 Hours Sepsis New/Unexplained Change in Mental Status Sepsis Action Taken by Nursing 04/19/25 14:48 04/19/25 14:54 04/19/25 15:00 Temperature Temperature Source Pulse Rate 105 H Pulse Rate [Apical] 102 H 103 H Pulse Rate from SpO2 Sensor 102 H Pulse Rhythm Pulse Rhythm [Apical] Regular Regular Pulse Strength [Apical] Normal Normal Respiratory Rate 30 H 34 H Respiratory Effort / Characteristics Non-Labored Spontaneous Respiratory Depth Normal Respiratory Pattern Regular Blood Pressure 122/76 Blood Pressure [Right Arm] Blood Pressure Mean 91 Blood Pressure Mean [Right Arm] Blood Pressure Position [Right Arm] Pulse Oximetry 94 87 L Oxygen Delivery Method Room Air Oxygen Flow Rate Sepsis Recent Fever Within 48 Hours Sepsis New/Unexplained Change in Mental Status Sepsis Action Taken by Nursing 04/19/25 15:21 04/19/25 15:30 04/19/25 15:45 Temperature Temperature Source Pulse Rate 101 H 105 H 103 H Pulse Rate [Apical] Pulse Rate from SpO2 Sensor 102 H Pulse Rhythm Pulse Rhythm [Apical] Pulse Strength [Apical] Respiratory Rate 40 H 15 25 H Respiratory Effort / Characteristics Respiratory Depth Respiratory Pattern Blood Pressure 119/86 103/63 118/76 Blood Pressure [Right Arm] Blood Pressure Mean 97 76 90 Blood Pressure Mean [Right Arm] Blood Pressure Position [Right Arm] Pulse Oximetry 100 95 Oxygen Delivery Method Oxygen Flow Rate Sepsis Recent Fever Within 48 Hours Sepsis New/Unexplained Change in Mental Status Sepsis Action Taken by Nursing 04/19/25 16:00 04/19/25 16:00 04/19/25 16:21 Temperature Temperature Source Pulse Rate 106 H 105 H Pulse Rate [Apical] 106 H Pulse Rate from SpO2 Sensor Pulse Rhythm Pulse Rhythm [Apical] Regular Pulse Strength [Apical] Normal Respiratory Rate 30 H 31 H 28 H Respiratory Effort / Characteristics Non-Labored Spontaneous Respiratory Depth Normal Respiratory Pattern Regular Blood Pressure 117/73 114/73 Blood Pressure [Right Arm] 117/73 Blood Pressure Mean 87 86 Blood Pressure Mean [Right Arm] 87 Blood Pressure Position [Right Arm] Lying Pulse Oximetry 94 94 Oxygen Delivery Method Nasal Cannula Nasal Cannula Oxygen Flow Rate 2 2 Sepsis Recent Fever Within 48 Hours Sepsis New/Unexplained Change in Mental Status Sepsis Action Taken by Nursing 04/19/25 16:56 Temperature Temperature Source Pulse Rate 106 H Pulse Rate [Apical] Pulse Rate from SpO2 Sensor Pulse Rhythm Pulse Rhythm [Apical] Pulse Strength [Apical] Respiratory Rate Respiratory Effort / Characteristics Respiratory Depth Respiratory Pattern Blood Pressure Blood Pressure [Right Arm] Blood Pressure Mean Blood Pressure Mean [Right Arm] Blood Pressure Position [Right Arm] Pulse Oximetry Oxygen Delivery Method Oxygen Flow Rate Sepsis Recent Fever Within 48 Hours Sepsis New/Unexplained Change in Mental Status Sepsis Action Taken by [facility] Medications Current Medication List: was personally reviewed by me Laboratory Data Attestation: I reviewed the patient's lab results. 04/19/25 12:40 04/19/25 12:40 Lab Results 04/19/25 04/19/25 04/19/25 Range/Units 12:40 12:48 14:50 WBC 6.86 (4.8-10.8) K/ul RBC 4.41 L (4.70-6.10) M/uL Hgb 12.7 L (14.0-18.0) g/dl Hct 38.3 L (42.0-52.0) % MCV 86.8 (80.0-100.0) fL MCH 28.8 (25.0-34.0) pg MCHC 33.2 (32.0-36.0) g/dL RDW Std Deviation 59.0 H (36.4-46.3) fL RDW Coeff of Cat 18.7 H (11.5-14.5) % Plt Count 20 L* D (130-400) K/uL Immature Gran % (Auto) 1.0 % Neut % (Auto) 92.5 % Lymph % (Auto) 3.1 % [place] % (Auto) 2.2 % Eos % (Auto) 0.0 % Baso % (Auto) 1.2 % Neut # (Auto) 6.35 (1.40-6.50) K/uL Lymph # (Auto) 0.21 L (1.20-3.40) K/uL [place] # (Auto) 0.15 (0.11-0.59) K/uL Eos # (Auto) 0.00 (0.00-0.50) K/uL Baso # (Auto) 0.08 (0.00-0.20) K/uL Immature Gran # (Auto) 0.07 (0.01-0.20) K/uL Peripher Smr Path Cons PT 14.0 H (9.0-12.0) Seconds INR 1.3 H (0.9-1.1) APTT 36 H (21-31) Seconds PTT Ratio 1.3 VBG pH 7.41 (7.36-7.41) VBG pCO2 46 (38-50) mmHg VBG pO2 < 20 mmHg VBG HCO3 29 mmol/L VBG O2 Saturation < 60.0 % VBG Base Excess 3.8 mEq/L Sodium 124 L (136-145) mmol/L Potassium 4.0 (3.5-5.1) mmol/L Chloride 86 L (98-107) mmol/L Carbon Dioxide 28 (21-32) mmol/L Anion Gap 10 (3-11) BUN 19 (6-23) mg/dl Creatinine 0.72 (0.6-1.4) mg/dl Est Cr Clr Drug Dosing 125.5 ml/min eGFR 105.24 BUN/Creatinine Ratio 26.4 H (10-20) Glucose 124 H (70-99(Fasting)) mg/dl Lactate 1.9 (0.4-2.0) mmol/L Calcium 9.7 (8.6-10.3) mg/dl Magnesium 1.7 (1.7-2.4) mg/dl Total Bilirubin 1.7 H D (0.2-1.0) mg/dl Direct Bilirubin 0.4 H (0-0.2) mg/dl AST 72 H (13-39) U/L ALT 56 H (7-52) U/L Alkaline Phosphatase 187 H (34-104) U/L Troponin I High Sens 24.5 H (0-20) pg/ml Total Protein 8.7 H (6.0-8.3) gm/dl Albumin 4.3 (3.4-5.0) gm/dl Globulin 4.4 H (2.5-4.0) gm/dl Albumin/Globulin Ratio 1.0 (0.9-2) Procalcitonin 5.23 H (0-0.5) ng/ml Urine Color Dark Yellow Urine Appearance Cloudy A (Clear) Urine pH 5.0 (4.5-7.5) Ur Specific [place] 1.033 H (1.000-1.030) Urine Protein 3+ H (Negative) Urine Glucose (UA) Negative (Negative) Urine Ketones Trace H (Negative) Urine Blood 2+ H (Negative) Urine Nitrite Negative (Negative) Urine Bilirubin 1+ H (Negative) Urine Urobilinogen Negative (Negative) Ur Leukocyte Esterase Trace H (Negative) Urine WBC (Auto) 0-5 (0-5) /hpf Urine RBC (Auto) 0-2 (0-2) /hpf U Hyaline Cast (Auto) 6-10 H (0-2) /lpf U Epithel Cells (Auto) 6-10 H (0-2) /hpf Urine Bacteria (Auto) None Seen (None Seen) Granular Casts P (None Prsent) /lpf Urine Comment Anaplasma Smear See Comment A Babesia Smear See Comment Lyme Disease Screen Negative (Negative) SARS-CoV-2 (PCR) NEGATIVE (Negative) Influenza Type A (PCR) Negative (Neg) Influenza Type B (PCR) Negative (Neg) RSV (RT-PCR) Negative (Neg) 04/19/25 Range/Units 14:58 WBC (4.8-10.8) K/ul RBC (4.70-6.10) M/uL Hgb (14.0-18.0) g/dl Hct (42.0-52.0) % MCV (80.0-100.0) fL MCH (25.0-34.0) pg MCHC (32.0-36.0) g/dL RDW Std Deviation (36.4-46.3) fL RDW Coeff of Cat (11.5-14.5) % Plt Count (130-400) K/uL Immature Gran % (Auto) % Neut % (Auto) % Lymph % (Auto) % [place] % (Auto) % Eos % (Auto) % Baso % (Auto) % Neut # (Auto) (1.40-6.50) K/uL Lymph # (Auto) (1.20-3.40) K/uL [place] # (Auto) (0.11-0.59) K/uL Eos # (Auto) (0.00-0.50) K/uL Baso # (Auto) (0.00-0.20) K/uL Immature Gran # (Auto) (0.01-0.20) K/uL Peripher Smr Path Cons PT (9.0-12.0) Seconds INR (0.9-1.1) APTT (21-31) Seconds PTT Ratio VBG pH (7.36-7.41) VBG pCO2 (38-50) mmHg VBG pO2 mmHg VBG HCO3 mmol/L VBG O2 Saturation % VBG Base Excess mEq/L Sodium (136-145) mmol/L Potassium (3.5-5.1) mmol/L Chloride (98-107) mmol/L Carbon Dioxide (21-32) mmol/L Anion Gap (3-11) BUN (6-23) mg/dl Creatinine (0.6-1.4) mg/dl Est Cr Clr Drug Dosing ml/min eGFR BUN/Creatinine Ratio (10-20) Glucose (70-99(Fasting)) mg/dl Lactate (0.4-2.0) mmol/L Calcium (8.6-10.3) mg/dl Magnesium (1.7-2.4) mg/dl Total Bilirubin (0.2-1.0) mg/dl Direct Bilirubin (0-0.2) mg/dl AST (13-39) U/L ALT (7-52) U/L Alkaline Phosphatase (34-104) U/L Troponin I High Sens 19.1 D (0-20) pg/ml Total Protein (6.0-8.3) gm/dl Albumin (3.4-5.0) gm/dl Globulin (2.5-4.0) gm/dl Albumin/Globulin Ratio (0.9-2) Procalcitonin (0-0.5) ng/ml Urine Color Urine Appearance (Clear) Urine pH (4.5-7.5) Ur Specific [place] (1.000-1.030) Urine Protein (Negative) Urine Glucose (UA) (Negative) Urine Ketones (Negative) Urine Blood (Negative) Urine Nitrite (Negative) Urine Bilirubin (Negative) Urine Urobilinogen (Negative) Ur Leukocyte Esterase (Negative) Urine WBC (Auto) (0-5) /hpf Urine RBC (Auto) (0-2) /hpf U Hyaline Cast (Auto) (0-2) /lpf U Epithel Cells (Auto) (0-2) /hpf Urine Bacteria (Auto) (None Seen) Granular Casts (None Prsent) /lpf Urine Comment Anaplasma Smear Babesia Smear Lyme Disease Screen (Negative) SARS-CoV-2 (PCR) (Negative) Influenza Type A (PCR) (Neg) Influenza Type B (PCR) (Neg) RSV (RT-PCR) (Neg) Administered Medications Doxycycline Hyclate 100 mg/ (Dextrose) 100 mls @ 50 mls/hr IV NOW STA Stop: 04/19/25 17:29 Last Admin: 04/19/25 15:57 Dose: 50 mls/hr Documented By: QGV Discontinued Medications Doxycycline Hyclate (Doxycycline Hyclate 100 Mg Cap) 200 mg PO NOW STA Stop: 04/19/25 14:36 Last Admin: 04/19/25 16:11 Dose: Not Given Documented By: NJM Sodium Chloride (Nss) 1,000 mls @ 999 mls/hr IV .Q1H1M ONE Stop: 04/19/25 13:39 Last Infusion: 04/19/25 13:57 Dose: Infused Documented By: Admin: 04/19/25 12:52 Dose: 999 mls/hr Documented By: MOJGAN Cefepime HCl (Maxipime 2000mg) 2,000 mg in 20 mls @ 5 mls/min IV NOW STA; Protocol Stop: 04/19/25 13:46 Last Admin: 04/19/25 13:58 Dose: 5 mls/min Documented By: MOJGAN Sodium Chloride (Nss) 1,000 mls @ 999 mls/hr IV .Q1H1M ONE Stop: 04/19/25 15:06 Last Admin: 04/19/25 14:47 Dose: 999 mls/hr Documented By: MOJGAN Imaging Data Attestation: I personally reviewed and interpreted this imaging study as follows: My Impression: 1 view chest x-ray was obtained in the emergency department. My interpretation is no free air, pleural effusion was noted, final report below. Radiologist's Impression: Chest X-Ray 04/19/25 12:14 XR chest 1V portable CLINICAL HISTORY: Fever COMPARISON STUDY: 10/31/2024 FINDINGS: Stable chest were. Stable mild cardiomegaly without pulmonary vascular congestion. Stable numerous scattered bilateral pulmonary nodules. Stable mild elevation of the left hemidiaphragm. There are likely trace pleural effusions with mild adjacent lung base consolidation. No pneumothorax. IMPRESSION: Likely trace pleural effusions with mild adjacent lung base consolidation. ACT 112: Negative or not required by law. Electronically signed by: Arcenio Brown M.D. 04/19/2025 1:29 PM Discharge Plan Visit Data Chief Complaint: Fever Stated Complaint: INFECTION, FEVER, NIGHT SWEATS, CHILLS ED Provider: Fernie Venegas Discharge Problem: Anaplasmosis, Fever, Thrombocytopenia, Abnormal LFTs, Acute hyponatremia, Elevated troponin I level Patient Disposition: Home - Self-Care Condition: Fair Forms Stand Alone Forms: My [facility], Important Visit Information Prescriptions Prescriptions: No Action Xarelto 20 mg tablet 20 mg PO DAILY Rx Instructions: must administer with evening meal (DME) Portable Oxygen Misc See Rx Instructions .MEDSUPPLY Qty: 1 0RF Rx Instructions: Oxygen 2 liters continuous via nasal cannula on exertion with portable concentrator. JACEK 99 fentanyl 100 mcg/hr patch 72 hour 100 mcg transdermal Q72H fentanyl 25 mcg/hr patch 72 hour 25 mcg transdermal Q72H Rx Instructions: USUALLY ALTERNATES WITH THE 100 MCG PATCH hydromorphone 4 mg tablet 4 mg PO Q4H PRN (Reason: Pain) Referrals Referrals: Berhane Kuo [Primary Care Provider] -
[2025-04-19] MEDS: SODIUM CHLORIDE 0.9% 1,000 ML IV ONE ×2 (12:52→14:47)
[2025-04-19 12:57] LABS: Base Excess VBG 3.8 mEq/L; HCO3 VBG 29 mmol/L; Oxygen Saturation VBG < 60.0 %; PCO2 VBG 46 mmHg (38-50); PO2 VBG < 20 mmHg; pH VBG 7.41 (7.36-7.41)
--- NOTE | 2025-04-19 13:30 | XRay Report ---
XR chest 1V portable CLINICAL HISTORY: Fever COMPARISON STUDY: 10/31/2024 FINDINGS: Stable chest were. Stable mild cardiomegaly without pulmonary vascular congestion. Stable n umerous scattered bilateral pulmonary nodules. Stable mild elevation of the left hemidiaphragm. There are likely trace pleural effusions with mild adjacent lung base consolidation. No pneumothorax. IMPRESSION: Likely trace pleural effusions with mild adjacent lung base consolidation. ACT 112: Negative or not required by law. Electronically signed by: Arcenio Brown M.D. 04/19/2025 1:29 PM
[2025-04-19 13:32] LABS: Alanine Aminotransferase 56.0 U/L (7-52); Albumin Globulin Ratio 1.0 (0.9-2); Albumin Level 4.3 gm/dl (3.4-5.0); Alkaline Phosphatase 187.0 U/L (34-104); Anion Gap 10.0 (3-11); Bilirubin,Total 1.7 mg/dl (0.2-1.0); Blood Urea Nitrogen 19.0 mg/dl (6-23); Calcium 9.7 mg/dl (8.6-10.3); Carbon Dioxide 28.0 mmol/L (21-32); Chloride 86.0 mmol/L (98-107); Creatinine Clr Calc Pharmacy 125.5 ml/min; Globulin 4.4 gm/dl (2.5-4.0); Glucose 124.0 mg/dl (70-99(Fasting)); Magnesium 1.7 mg/dl (1.7-2.4); Potassium 4.0 mmol/L (3.5-5.1); Sodium 124.0 mmol/L (136-145); Total Protein 8.7 gm/dl (6.0-8.3)
[2025-04-19 13:42] LABS: Hematocrit (blood only) 38.3 % (42.0-52.0); Hemoglobin 12.7 g/dl (14.0-18.0); Mean Corpuscular Hemoglobin 28.8 pg (25.0-34.0); Mean Corpuscular Volume 86.8 fL (80.0-100.0); Platelet Count 20 K/uL (130-400); RDW Standard Deviation 59.0 fL (36.4-46.3); Red Blood Count 4.41 M/uL (4.70-6.10); White Blood Count 6.86 K/ul (4.8-10.8)
[2025-04-19 13:45] LABS: Influenza A virus by PCR Negative (Neg); Influenza B virus by PCR Negative (Neg); SARS CoV2 RNA(COVID-19) Ceph NEGATIVE (Negative)
[2025-04-19 13:46] LABS: INR 1.3 (0.9-1.1); Partial Thromboplastin Time 36 Seconds (21-31); Prothrombin Time 14.0 Seconds (9.0-12.0)
[2025-04-19] MEDS: CEFEPIME 2000MG 2,000 MG/20 ML SYR IV STA (13:58)
[2025-04-19 14:34] LABS: Immature Granulocytes # (auto) 0.07 K/uL (0.01-0.20); Immature Granulocytes % (auto) 1.0 %
[2025-04-19] MEDS: DOXYCYCLINE HYCLATE 100 MG CAP PO STA (15:13)
[2025-04-19 15:22] LABS: Appearance Urine Cloudy (Clear); Bacteria Urine Automated None Seen (None Seen); Glucose Urine UA Negative (Negative); RBC Urine Automated 0-2 /hpf (0-2); WBC Urine Automated 0-5 /hpf (0-5)
[2025-04-19] MEDS ORDERED: SODIUM CHLORIDE 0.9% 100 ML IV PRN (15:31)
[2025-04-19] MEDS: DOXYCYCLINE HYCLATE 100 MG in DEXTROSE 5% MINI-B 100 ML IV STA (15:57)
--- NOTE | 2025-04-19 16:08 | History & Physical Report ---
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 Will treat with doxycycline for 10 days. Supportive care. (2) Thrombocytopenia: Plan: Platelet count 20,000 on admission. No active bleeding. Transfusion ordered. Serial labs (3) Acute hyponatremia: Plan: Serum osmolarity pending. Serial labs. (4) Metastatic colon cancer to liver: Plan: Stage IV colon cancer to liver and lung. Currently undergoing chemotherapy. Plan Anticipate eventual discharge back to home when he is feeling better and platelet count has stabilized History of Present Illness Chief Complaint: Malaise, thrombocytopenia seen on lab testing Primary Care Provider: Berhane Kuo 60-year-old white male currently receiving treatment for metastatic colon cancer with involvement of liver and lungs. He has not been feeling well for the past several days with Malays, chills, fever and came to the ED for evaluation. He tested positive for anaplasmosis and platelet count is quite low at 20,000. No active bleeding. He has received intravenous doxycycline in the ED and platelet transfusion is ordered and pending. He is hemodynamically stable at this time. He will be admitted for further evaluation and treatment. Allergies Allergy/AdvReac Type Severity Reaction Status Date / Time No Known Drug Allergies Allergy Verified 12/15/24 14:20 Home Medications Medication Instructions Recorded Confirmed Type levofloxacin 500 mg tablet 500 mg PO DAILY 10 days #10 tabs 06/27/24 12/15/24 Rx fentanyl 75 mcg/hr transdermal 1 patch transdermal Q72H 12/01/24 12/15/24 History patch pregabalin [Lyrica] PO 12/01/24 12/15/24 History rivaroxaban 20 mg tablet (Xarelto) 20 mg PO DAILY 12/01/24 12/15/24 History zolpidem 5 mg tablet (Ambien) 5 mg PO ONCE PRN 12/01/24 12/15/24 History Portable Oxygen #1 ea 12/06/24 12/15/24 Rx hydromorphone 2 mg PO .every 6 hours 12/15/24 12/15/24 History Past Med/Surg History Problem List (Updated 04/19/25 @ 14:35 by Fernie Venegas DO) Anaplasmosis (Acute) Elevated troponin I level (Acute) Acute hyponatremia (Acute) Abnormal LFTs (Acute) Thrombocytopenia (Acute) Neoplasm of chest wall (Acute) Metastatic colon cancer to liver (Acute) Abnormal chest CT Multiple pulmonary nodules Hypoxic respiratory failure Short of breath on exertion Biliary tract infection Hypokalemia Fever (Acute) Pleural effusion associated with pancreatitis History of pulmonary embolism Abnormal urinalysis Pancreatitis (Acute) Acute UTI (Acute) PE (pulmonary embolism) (Acute) DVT (deep venous thrombosis) (Acute 12/29/13) Medical History Colon cancer Family History Father Coronary heart disease Social History Smoking Status: Never smoker Second Hand Exposure: No; Do You Dip or Chew Tobacco: No; Hx Alcohol Use: No Hx Substance Use: No Preferred Language: Croatian Communication Ability: Effective Financial Compliance Manager Required: No Beliefs That Will Affect Care: None marital status: Current Living Situation: Spouse Feels Safe at Home: Yes Assistive Devices: None Review of Systems 2 Review of Systems: Constitutionalrecent onset of fever and chills, malaise ENTno blurred vision, no double vision, no epistaxis, no sore throat Respiratoryno cough, no wheezing, no shortness of breath Cardiacno palpitations, no chest pain, no syncope Natalya nausea, vomiting, diarrhea, melena, hematochezia GUno urinary retention, no urinary incontinence, no dysuria, no hematuria Musculoskeletalno joint pain, no muscle tenderness Skinno bruising, no rashes, no pruritus Neurono isolated weakness, no paresthesia, no weakness Psychno depression, no anxiety Physical Exam 2 Physical Exam: General-alert and oriented x3, low-grade fever HEENT-head atraumatic and normocephalic, pupils equal and reactive to light, extraocular muscles intact Neck-no lymphadenopathy or thyromegaly, trachea midline Chest-scattered bilateral rhonchi. No rales, no wheezing Cardiac-regular rate and rhythm, normal S1 and S2 Abdomen-normal bowel sounds, no hepatosplenomegaly Extremities-no cyanosis, clubbing, or edema Neuro-cranial nerves II through XII intact, motor and sensory function within normal limits, strength symmetrical, no focal deficits Psych-flat affect Results & Data Results & Data Vital Signs (Past 12 Hours) Vital Signs Temp Pulse Pulse Resp BP BP Pulse Ox 04/19/25 16:00 106 H 30 H 117/73 94 04/19/25 15:00 105 H 34 H 122/76 87 L 04/19/25 14:54 103 H 04/19/25 14:48 102 H 30 H 94 04/19/25 14:33 103 H 30 H 114/67 93 04/19/25 14:30 103 H 25 H 114/67 91 04/19/25 14:15 103 H 26 H 111/67 94 04/19/25 14:00 100 H 23 113/71 04/19/25 13:45 110/67 04/19/25 13:15 108/69 04/19/25 13:15 97 H 23 108/69 100 04/19/25 13:00 113/75 04/19/25 12:47 100 H 16 95 04/19/25 12:47 103 H 16 103/63 98 04/19/25 12:43 101 H 04/19/25 12:09 36.3 C L 112 H 24 98/67 L 94 O2 Del Method O2 Flow Rate 04/19/25 16:00 Nasal Cannula 2 04/19/25 15:00 04/19/25 14:54 04/19/25 14:48 Room Air 04/19/25 14:33 04/19/25 14:30 04/19/25 14:15 04/19/25 14:00 04/19/25 13:45 04/19/25 13:15 04/19/25 13:15 04/19/25 13:00 04/19/25 12:47 Nasal Cannula 2 04/19/25 12:47 Nasal Cannula 2 04/19/25 12:43 04/19/25 12:09 Nasal Cannula 2 Laboratory Results 04/19/25 12:40 04/19/25 12:40 Code Status & VTE Plan Code Status Full code PG Care Time/CCT Total # of Minutes Spent Total Time Spent with Patient: Total time spent is greater than 50% in coordination of care (as documented) at patient's floor/unit and/or counseling patient: Coding Level of Care Code 09599 INT INP/OBS CARE 3/75MIN Diagnoses Anaplasmosis A77.49 Thrombocytopenia D69.6 Acute hyponatremia E87.1 Metastatic colon cancer to liver C18.9; C78.7
[2025-04-19] MEDS ORDERED: ONDANSETRON INJ 2 MG/ML 2 ML VIAL IV PRN (18:42)
[2025-04-19 22:11] LABS: Anaplasmosis Smear(Rpt to DOH) Pos for Anaplasma
[2025-04-20] MEDS: ACETAMINOPHEN 1,000 MG/100 ML VIAL IV PRN (01:39)
[2025-04-20 08:15] LABS: Anion Gap 5.0 (3-11); Blood Urea Nitrogen 14.0 mg/dl (6-23); Calcium 8.1 mg/dl (8.6-10.3); Carbon Dioxide 29.0 mmol/L (21-32); Chloride 93.0 mmol/L (98-107); Creatinine Clr Calc Pharmacy 209.7 ml/min; Glucose 103.0 mg/dl (70-99(Fasting)); Potassium 3.8 mmol/L (3.5-5.1); Sodium 127.0 mmol/L (136-145)
[2025-04-20] MEDS: DOXYCYCLINE HYCLATE 100 MG in DEXTROSE 5% MINI-B 100 ML IV SCH (08:58)
[2025-04-20 09:36] LABS: Hematocrit (blood only) 28.4 % (42.0-52.0); Hemoglobin 9.5 g/dl (14.0-18.0); Mean Corpuscular Hemoglobin 29.2 pg (25.0-34.0); Mean Corpuscular Volume 87.4 fL (80.0-100.0); Platelet Count 16 K/uL (130-400); RDW Standard Deviation 60.8 fL (36.4-46.3); Red Blood Count 3.25 M/uL (4.70-6.10); White Blood Count 4.46 K/ul (4.8-10.8)
[2025-04-20 09:59] LABS: Dohle Bodies 1+; Immature Granulocytes # (auto) 0.03 K/uL (0.01-0.20); Immature Granulocytes % (auto) 0.7 %; Toxic Granulation 2+
[2025-04-20] MEDS ORDERED: SODIUM CHLORIDE 0.9% 100 ML IV PRN (10:13)
[2025-04-20] MEDS: RIVAROXABAN 20 MG TAB PO SCH (10:27)
--- NOTE | 2025-04-20 16:34 | Hospitalist Progress Note ---
Date of Service April 20, 2025 Assessment & Plan (1) Anaplasmosis: Plan: Intravenous doxycycline while hospitalized. Day 2. Will treat with doxycycline for 10 days. Supportive care. (2) Thrombocytopenia: Plan: Platelet count 20,000 on admission. Platelet count has fallen to 16,000 despite transfusion on admission. He will receive another platelet transfusion today, April 20. No active bleeding seen. Serial labs (3) Acute hyponatremia: Plan: Sodium has improved to 127. Serum osmolarity is low at 268. 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 Continue fluid restriction. Serial labs. (4) Metastatic colon cancer to liver: Plan: Stage IV colon cancer to liver and lung. Currently undergoing chemotherapy. Plan Anticipate eventual discharge back to home when he is feeling better and platelet count has stabilized. Hopefully within the next day or 2. He will remain on oral doxycycline for a total of 10 days of therapy. Admission and Anticipated Discharge Date Admission Date: April 19, 2025 Subjective The patient looks and feels better. However, platelet count is down to 16,000 now despite transfusion yesterday, April 19. He will require another transfusion today, April 20. Intravenous doxycycline day 2. Sodium improved from 124 up to 127. Serum osmolarity 268 on admission. No overt bleeding or bruising. No overt melena or hematochezia seen Review of Systems 2 Review of Systems: Constitutionalrecent onset of fever and chills, malaise ENTno blurred vision, no double vision, no epistaxis, no sore throat Respiratoryno cough, no wheezing, no shortness of breath Cardiacno palpitations, no chest pain, no syncope Natalya nausea, vomiting, diarrhea, melena, hematochezia GUno urinary retention, no urinary incontinence, no dysuria, no hematuria Musculoskeletalno joint pain, no muscle tenderness Skinno bruising, no rashes, no pruritus Neurono isolated weakness, no paresthesia, no weakness Psychno depression, no anxiety Physical Exam 2 Physical Exam: General-alert and oriented x3, low-grade fever HEENT-head atraumatic and normocephalic, pupils equal and reactive to light, extraocular muscles intact Neck-no lymphadenopathy or thyromegaly, trachea midline Chest-scattered bilateral rhonchi. No rales, no wheezing Cardiac-regular rate and rhythm, normal S1 and S2 Abdomen-normal bowel sounds, no hepatosplenomegaly Extremities-no cyanosis, clubbing, or edema Neuro-cranial nerves II through XII intact, motor and sensory function within normal limits, strength symmetrical, no focal deficits Psych-flat affect Results & Data Results & Data Vital Signs (Past 12 Hours) Vital Signs Temp Pulse Pulse Resp BP BP BP 04/20/25 16:19 36.6 C 86 16 112/71 04/20/25 13:52 36.5 C 83 16 98/65 L 04/20/25 12:39 36.6 C 85 16 105/69 04/20/25 12:09 36.4 C L 81 16 101/68 04/20/25 11:54 36.5 C 81 16 103/65 04/20/25 11:52 36.4 C L 82 16 100/65 04/20/25 11:38 36.3 C L 79 18 98/62 L 04/20/25 11:27 36.3 C L 79 16 98/62 L 04/20/25 11:14 36.3 C L 82 18 98/63 L 04/20/25 08:04 94 H 04/20/25 07:38 36.3 C L 77 16 105/67 04/20/25 04:33 36.8 C Pulse Ox O2 Del Method O2 Flow Rate 04/20/25 16:19 96 Nasal Cannula 2 04/20/25 13:52 100 2 04/20/25 12:39 99 04/20/25 12:09 100 04/20/25 11:54 99 2 04/20/25 11:52 99 2 04/20/25 11:38 04/20/25 11:27 100 04/20/25 11:14 100 Nasal Cannula 2 04/20/25 08:04 04/20/25 07:38 96 Nasal Cannula 2 04/20/25 04:33 Laboratory Results 04/20/25 09:05 04/20/25 07:15 PG Care Time/CCT Total # of Minutes Spent Total Time Spent with Patient: Total time spent is greater than 50% in coordination of care (as documented) at patient's floor/unit and/or counseling patient: Coding Level of Care Code 70461 SUB INP/OBS CARE 3/50MIN Diagnoses Anaplasmosis A77.49 Thrombocytopenia D69.6 Acute hyponatremia E87.1 Metastatic colon cancer to liver C18.9; C78.7
[2025-04-20 19:01] LABS: Platelet Count 21 K/uL (130-400)
[2025-04-21] MEDS: INFLUENZA VACC TS2025-26(6m+)/PF (IIV3) 0.5mL Syr IM ONE (09:30)
[2025-04-21 12:35] LABS: Anion Gap 5.0 (3-11); Blood Urea Nitrogen 10.0 mg/dl (6-23); Calcium 8.1 mg/dl (8.6-10.3); Carbon Dioxide 30.0 mmol/L (21-32); Chloride 95.0 mmol/L (98-107); Creatinine Clr Calc Pharmacy 217.7 ml/min; Glucose 137.0 mg/dl (70-99(Fasting)); Potassium 3.5 mmol/L (3.5-5.1); Sodium 130.0 mmol/L (136-145)
[2025-04-21 12:52] LABS: Hematocrit (blood only) 29.3 % (42.0-52.0); Hemoglobin 9.7 g/dl (14.0-18.0); Mean Corpuscular Hemoglobin 29.1 pg (25.0-34.0); Mean Corpuscular Volume 88.0 fL (80.0-100.0); Platelet Count 25 K/uL (130-400); RDW Standard Deviation 60.1 fL (36.4-46.3); Red Blood Count 3.33 M/uL (4.70-6.10); White Blood Count 6.52 K/ul (4.8-10.8)
[2025-04-21 12:54] LABS: Immature Granulocytes # (auto) 0.06 K/uL (0.01-0.20); Immature Granulocytes % (auto) 0.9 %; Tear Drop Cells Occasional
--- NOTE | 2025-04-21 13:52 | Discharge Summary ---
Discharge Summary Date of Service April 21, 2025 Principal Dx & Hospital Course #1 = Principal Diagnosis (1) Anaplasmosis: The patient received intravenous doxycycline while hospitalized. Will treat with oral doxycycline for an additional 7 days at discharge 10 days. Supportive care. (2) Thrombocytopenia: Platelet count 20,000 on admission. Platelet count fell to 16,000 and has improved to 25,000 today, April 21 with platelet transfusion. Hopefully the platelet count will continue to improve as anaplasmosis is treated with doxycycline. He is scheduled for repeat lab studies next Thursday. There is no evidence of active bleeding and he is otherwise stable. (3) Acute hyponatremia: Sodium has improved further to 130. Serum osmolarity low on admission at 268. 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 Continue fluid restriction while hospitalized. Serial labs. (4) Metastatic colon cancer to liver: Stage IV colon cancer to liver and lung. Currently undergoing chemotherapy. Plan Home todayApril 21, on oral doxycycline. Lab studies will be repeated next Thursday. He is instructed to return to the ED immediately if he develops any bleeding diathesis Admission HPI Per Admitting Provider 60-year-old white male currently receiving treatment for metastatic colon cancer with involvement of liver and lungs. He has not been feeling well for the past several days with Malays, chills, fever and came to the ED for evaluation. He tested positive for anaplasmosis and platelet count is quite low at 20,000. No active bleeding. He has received intravenous doxycycline in the ED and platelet transfusion is ordered and pending. He is hemodynamically stable at this time. He will be admitted for further evaluation and treatment. Discharge Exam General-alert and oriented x3, low-grade fever HEENT-head atraumatic and normocephalic, pupils equal and reactive to light, extraocular muscles intact Neck-no lymphadenopathy or thyromegaly, trachea midline Chest-scattered bilateral rhonchi. No rales, no wheezing Cardiac-regular rate and rhythm, normal S1 and S2 Abdomen-normal bowel sounds, no hepatosplenomegaly Extremities-no cyanosis, clubbing, or edema Neuro-cranial nerves II through XII intact, motor and sensory function within normal limits, strength symmetrical, no focal deficits Psych-flat affect Discharge Plan Discharge Items Patient Disposition: Home - Self-Care Reason For Visit: ANAPLASMOSIS, THROMBOCYTOPENIA Discharge Diagnosis: Anaplasmosis, thrombocytopenia Condition on Discharge: Good Activity: Resume your previous activity Non-emergency contact: Primary Care Provider and Oncologist Call non-emergency contact if: your symptoms worsen Follow-up/Referrals: Berhane Kuo [Primary Care Provider] - Diet: Regular Addtl Attending Provider Instructions: Take doxycycline 100 mg twice daily for 7 more days. A prescription has been sent to [facility]. Stay off Xarelto temporarily until the platelet count returns to baseline and told to restart Xarelto by PCP or oncologist. Outpatient lab study on Thursday as scheduled to recheck platelet level prior to resuming chemotherapy. Pending Studies at Discharge: No Stand-Alone Forms: [employer], Smoking Cessation Medications and DC Order Prescriptions: New doxycycline hyclate 100 mg capsule 100 mg PO BID 7 Days Qty: 14 0RF Continued (DME) Portable Oxygen Misc See Rx Instructions .MEDSUPPLY Qty: 1 0RF Rx Instructions: Oxygen 2 liters continuous via nasal cannula on exertion with portable concentrator. JACEK 99 fentanyl 100 mcg/hr patch 72 hour 100 mcg transdermal Q72H fentanyl 25 mcg/hr patch 72 hour 25 mcg transdermal Q72H Rx Instructions: USUALLY ALTERNATES WITH THE 100 MCG PATCH hydromorphone 4 mg tablet 4 mg PO Q4H PRN (Reason: Pain) Discontinued Xarelto 20 mg tablet 20 mg PO DAILY Rx Instructions: must administer with evening meal Discharge Orders: Discharge Order (Routine); Ordered 04/21/25 Ordered By: Kirby Akers Admission Data Admit Date/Time: 04/19/25 15:59 Attending Provider: Kirby Akers Admit Provider: Kirby Akers Primary Care Provider: Berhane Kuo Other Providers: Kirby Akers Hospital Stay Data Consultations 04/19/25 14:05 ED Decision to Admit Stat Pending Results Patient Have Any Pending Studies at Discharge: No Discharge Instructions Given to Patient (Per Discharging Provider) Take doxycycline 100 mg twice daily for 7 more days. A prescription has been sent to [facility]. Stay off Xarelto temporarily until the platelet count returns to baseline and told to restart Xarelto by PCP or oncologist. Outpatient lab study on Thursday as scheduled to recheck platelet level prior to resuming chemotherapy. Total Time Total Time Spent Total Time Spent (In Minutes): 45 minutes Coding Level of Care Code 82807 INP/OBS DISCH >30 MIN Diagnoses Anaplasmosis A77.49 Thrombocytopenia D69.6 Acute hyponatremia E87.1 Metastatic colon cancer to liver C18.9; C78.7
--- NOTE | 2025-04-24 05:46 | Electrocardiogram Report ---
Test Reason : Blood Pressure : */* mmHG Vent. Rate : 101 BPM Atrial Rate : 101 BPM P-R Int : 122 ms QRS Dur : 96 ms QT Int : 338 ms P-R-T Axes : -20 -12 -15 degrees QTcB Int : 438 ms Sinus tachycardia Low voltage QRS Borderline ECG When compared with ECG of 05-May-2024 18:09, Incomplete right bundle branch block is no longer Present Confirmed by Keaton Cooley ([id number]) on 04/24/2025 5:46:20 AM Referred By: Pascale Parmar Confirmed By: Keaton Cooley
== END 2025-04-21 15:20 | disposition home or self-care (01) | DRG 868 ==
LOC: SUATTDRO → ED 11:54 → 2W 15:59